=== PATIENT | female | born 1965 | race Two or more races ===

== ENCOUNTER 2020-11-23 14:59 | Inpatient (IN) | payer MEDICAID, OTHER ==
[~2020-11-23] VITALS: Ht 167.6 cm; Wt 145.1 kg
[2020-11-23 18:49] LABS: WHITE BLOOD COUNT (AUTO) 19.9 K/uL (4.3-11.0)
[2020-11-23 18:53] LABS: BASOPHILS # (AUTO) 0.1 /CMM (0.0-0.2); BASOPHILS % (AUTO) 0.4 % (0.0-2.0); EOSINOPHILS % (AUTO) 0.2 % (0.0-6.0); LYMPHOCYTES # (AUTO) 0.4 /CMM (0.8-4.8); MEAN CORPUSCULAR HGB CONC 30 g/dl (31.0-36.0); MEAN CORPUSCULAR VOLUME 91 fL (82-100); MONOCYTES % (AUTO) 4.9 % (2.0-12.0); NEUTROPHILS # (AUTO) 18.4 /CMM (1.8-8.9); NEUTROPHILS % (AUTO) 92.5 % (43.0-81.0); PLATELET COUNT (AUTO) 331 /CMM (150-450)
[2020-11-23 18:56] LABS: HEMATOCRIT 15 % (33-45); HEMOGLOBIN 4.4 g/dL (11.5-14.8)
[2020-11-23 19:09] LABS: CALCIUM, SERUM 9.8 mg/dL (8.5-10.1); POTASSIUM 4.8 mmol/L (3.5-5.1)
[2020-11-23 19:11] LABS: CREATININE 15.4 mg/dL (0.6-1.3)
--- NOTE | 2020-11-23 19:14 | NUR ---
[id number] FR HOME FOR WORSENING BLE PAIN AND SWELLING. PATIENT ASSISTED TO BED IN THE HALLWAY.
[2020-11-23] MEDS ORDERED: CLINDAMYCIN 900 MG in IV D5W 100 ML IV ONE (20:30)
[2020-11-23] MEDS ORDERED: CLINDAMYCIN 900 MG/6 ML VIAL ONE (20:38)
[2020-11-23] MEDS ORDERED: KETOROLAC TROMETHAMINE 15 MG/ML VIAL ONE ×2 (20:38→20:44)
[2020-11-23 20:42] LABS: LYMPHOCYTES % (MANUAL) 5 % (16-48); MONOCYTES % (MANUAL) 4 % (0-11.0); NEUTROPHILS % (MANUAL) 91 (42-76)
--- NOTE | 2020-11-23 20:50 | NUR ---
ASSUMED CARE FOR PATIENT AT THIS TIME. PT AAOX4. RESTING COMFORTABLY IN BED. VITAL SIGNS STABLE. NO ACUTE DISTRESS NOTED AT THIS TIME. WILL CONTINUE TO MONITOR
[2020-11-23] MEDS ORDERED: KETOROLAC TROMETHAMINE INJ 30 MG/ML VIAL IV ONE (21:00)
--- NOTE | 2020-11-23 21:47 | NUR ---
EPIC OYSTER PREPARER PAGED FOR PANEL
--- NOTE | 2020-11-23 22:20 | NUR ---
COVID SWAB COLLECTED AND SENT TO LAB
[2020-11-23] MEDS ORDERED: FUROSEMIDE 40 MG/4 ML VIAL IV ONE (23:30)
[2020-11-23] MEDS ORDERED: VANCOMYCIN 2 GM in IV D5W 500 ML IV ONE (23:30)
[2020-11-23] MEDS ORDERED: MAGNESIUM HYDROXIDE 30 ML UDC PO PRN (23:30)
[2020-11-23] MEDS ORDERED: ZOLPIDEM TARTRATE 5 MG TABLET PO PRN (23:30)
[2020-11-23] MEDS ORDERED: Z GUARD REMEDY 2 OZ OINT TP PRN (23:30)
[2020-11-23] MEDS ORDERED: MAG HYDROX/AL HYDROX/SIMETH 30 ML UDC PO PRN (23:30)
[2020-11-23] MEDS ORDERED: FUROSEMIDE 40 MG/4 ML VIAL ONE (23:32)
[2020-11-23] MEDS ORDERED: VANCOMYCIN 1 GM VIAL ONE (23:32)
--- NOTE | 2020-11-24 | NUR ---
PT RESTING COMFORTABLY IN BED. VITAL SIGNS STABLE. NO ACUTE DISTRESS NOTED AT THIS TIME. WILL CONTINUE TO MONITOR
[2020-11-24 00:15] LABS: BILIRUBIN,URINE Negative (NEGATIVE); COLOR,URINE YELLOW (YELLOW); LEUKOCYTE ESTERASE ,URINE Small (NEGATIVE); NITRITE, URINE Negative (NEGATIVE); PROTEIN,URINE >=300 mg/dl (NEGATIVE); UGLUCOSE Negative (NEGATIVE); UROBILINOGEN,URINE 0.2 EU/dL (0.2)
[2020-11-24 02:20] LABS: BACTERIA,URINE Moderate /HPF (None Seen); SQUAMOUS EPITHELIAL CELL,UR Moderate /HPF (None Seen)
--- NOTE | 2020-11-24 04:05 | NUR ---
CALLED LAB REGARDING BLOOD TRANSFUSION. PER LAB, NO ORDERS PLACED. BLANCA HAN NP MADE AWARE
--- NOTE | 2020-11-24 04:45 | NUR ---
BLOOD TRANSFUSION INITIATED
--- NOTE | 2020-11-24 05:00 | NUR ---
PT RESTING COMFORTABLY IN BED. VITAL SIGNS STABLE. NO ADVERSE REACTION NOTED AT THIS TIME. WILL CONTINUE TO MONITOR
--- NOTE | 2020-11-24 05:10 | NUR ---
APPLICATION PACKAGER UNABLE TO DRAW BLOOD AT THIS TIME D/T BLOOD TRANSFUSION RUNNING. BLANCA HAN NP MADE AWARE
--- NOTE | 2020-11-24 06:25 | NUR ---
1 UNIT PRBC COMPLETED AT THIS TIME. NO ADVERSE EFFECTS NOTED. PT RESTING COMFORTABLY IN BED. VITAL SIGNS STABLE. CALLED LAB FOR SECOND UNIT OF PRBC, NOT READY AT THIS TIME
--- NOTE | 2020-11-24 07:28 | NUR ---
REPORT GIVEN TO KENNY SORENSON FOR MIKE
[2020-11-24] MEDS ORDERED: LEVO150T8 PO (08:04)
[2020-11-24 09:09] LABS: BASOPHILS # (AUTO) 0.1 /CMM (0.0-0.2); MONOCYTES # (AUTO) 0.7 /CMM (0.1-1.30)
[2020-11-24 09:13] LABS: BASOPHILS % (AUTO) 0.4 % (0.0-2.0); EOSINOPHILS % (AUTO) 1.1 % (0.0-6.0); LYMPHOCYTES # (AUTO) 0.7 /CMM (0.8-4.8); LYMPHOCYTES % (AUTO) 3.7 % (20.0-44.0); MEAN CORPUSCULAR HGB CONC 30 g/dl (31.0-36.0); MEAN CORPUSCULAR VOLUME 94 fL (82-100); MONOCYTES % (AUTO) 3.8 % (2.0-12.0); NEUTROPHILS # (AUTO) 16.1 /CMM (1.8-8.9); PLATELET COUNT (AUTO) 276 /CMM (150-450); WHITE BLOOD COUNT (AUTO) 17.8 K/uL (4.3-11.0)
[2020-11-24 09:14] LABS: RED BLOOD CELL COUNT(AUTO) 1.64 MIL/uL (4.0-5.2)
[2020-11-24 09:18] LABS: HEMATOCRIT 15 % (33-45); HEMOGLOBIN 4.7 g/dL (11.5-14.8)
[2020-11-24 09:25] LABS: ALBUMIN 2.1 g/dL (3.4-5.0); BILIRUBIN,TOTAL 0.3 mg/dL (0.2-1.0); MAGNESIUM 2.9 mg/dL (1.8-2.4); POTASSIUM 4.6 mmol/L (3.5-5.1); TOTAL PROTEIN, SERUM 7.4 g/dL (6.4-8.2)
[2020-11-24 09:28] LABS: CREATININE 15.5 mg/dL (0.6-1.3); PHOSPHORUS 14.3 mg/dL (2.5-4.9)
--- NOTE | 2020-11-24 11:15 | NUR ---
report given to Deuce COX for liana
--- NOTE | 2020-11-24 11:41 | NUR ---
transferred patient via gurney accompanied by RN and emt in no distress. Blood infusing while on transfer.
--- NOTE | 2020-11-24 11:42 | NUR ---
RN at bedside to assume care.
[2020-11-24 12:25] LABS: LYMPHOCYTES % (MANUAL) 2 % (16-48); MONOCYTES % (MANUAL) 6 % (0-11.0); NEUTROPHILS % (MANUAL) 92 (42-76)
--- NOTE | 2020-11-24 12:25 | NUR ---
BUSINESS DEVELOPMENT INTERN ADMITTING NOTES PATIENT ADMITTED TO UNIT VIA [facility] @ 2000 ACCOMPANIED BY Rosario SORENSON. A/O X4. ABLE TO MAKE NEEDS KNOWN, DENIES PAIN OR ANY DISCOMFORTS AT THIS TIME. PT ORIENTED TO STAFF AND ROOM. ON ROOM AIR, BREATHING EVEN AND UNLABORED NO SIGNS OF ACUTE DISTRESS NOTED. PT WITH IV ACCESS NOTED ON RIGHT HAND g#18 WITH BLOOD TRANSFUSION ( BAG 2-3) INFUSING WELL, NO COMPLAINTS OF ANY ALLERGIC/ADVERSE REACTIONS VOICED. PT PLACED ON EXTERNAL MONITORING WITH CURRENT READING OF NSR WITH HR ON THE 70'S, NO C/O CARDIAC DISTRESS VOICED. PHOTOS OF SKIN ISSUES TAKEN BUT PT REFUSED TO HAVE ASSESSMENT ON HER BACK OR SACRAL AREA, SAME REFUSED TO REMOVE DRESSINGS AND TAKE PHOTOS ON HER LEFT LOWER EXTREMITIES STATED THAT SHE GOES TO [facility] FOR WOUND DRESSING ONCE A WEEK. WADE FR #[address] ACTIVELY DRAINING CLEAR YELLOW URINE TO BEDSIDE URINARY BAG. SAFETY MEASURES INITIATED: BED PLACED IN LOWEST LOCKED POSITION WITH SR UP X2. CALL LIGHT PLACED W/I EASY REACH OF PT. WILL CONTINUE TO MONITOR PT ACCORDINGLY.
[2020-11-24] MEDS: HYDROCODONE/APAP 5/325MG TABLET PO PRN (13:06)
--- NOTE | 2020-11-24 13:06 | NUR ---
RN NOTES PT'S 2ND OF 3RD BAG OF PRBC COMPLETED AT THIS TIME. NO ALLERGIC/ADVERSE EFFECTS NOTED. PT RESTING COMFORTABLY IN BED IN NO ACUTE SIGNS OF DISTRESS. VITAL SIGNS STABLE. WILL INFUSE 3RD BAG ORDERED.
--- NOTE | 2020-11-24 13:10 | NUR ---
RN NOTES PT COMPLAINING OF PINCHING/ SHARP PAIN ON RIGHT LOWER LEG. 7/10 SCALE. PRN NORCO 5/325 MG P.O. GIVEN ORDERED AT 1306. WILL CONTINUE TO MONITOR AND REASSESS PT.
--- NOTE | 2020-11-24 15:00 | NUR ---
RN NOTES WENT TO LAB TO COLLECT THE PT'S 3RD BAG OF PRBC BUT UNABLE TO SCAN PRBC PRODUCT NUMBER. RETURNED PRBC TO LAB. BLOOD BANK WILL CALL ONCE THE [facility] IS READY. WILL FOLLOW UP
[2020-11-24 16:00] VITALS: BP 99/49
--- NOTE | 2020-11-24 17:35 | NUR ---
RN NOTES CALLED BLOOD BANK TO FOLLOW UP ON PT'S 3RD PRBC. WAS TOLD THAT PRBC IS NOT READY YET. WILL FOLLOW UP.
[2020-11-24 18:32] VITALS: BP 119/60
--- NOTE | 2020-11-24 18:37 | NUR ---
RN NOTES 3RD BAG OF 3 PRBC STARTED VIA R HAND IV ACCESS. VITAL SIGNS CHECKED: BP 119/60, P 75, RR 20, AND TEMPERATURE 97.6 F. WILL MONITOR FOR ANY ALLERGIC OR ADVERSE REACTIONS.
[2020-11-24 18:52] VITALS: BP 122/58
--- NOTE | 2020-11-24 18:56 | NUR ---
GRILL PREP COOK CLOSING NOTES PT IN BED AWAKE AT THIS TIME AND RESTING AT MODERATE HIGH BACKREST POSITION. A/O X4. ABLE TO MAKE NEEDS KNOWN. TOLERATING ROOM AIR WITH NO ACUTE RESPIRATORY DISTRESS NOTED DURING SHIFT. IV ACCESS ON RIGHT HAND g#18 INTACT AND PATENT, BLOOD TRANSFUSION BAG 3 OF 3 ONGOING WELL, NO COMPLAINTS OF ANY ALLERGIC/ADVERSE REACTIONS NOTED. EXTERNAL MONITORING SHOWS CURRENT READING OF NSR WITH HR ON THE 70'S, NO C/O CARDIAC DISTRESS VOICED. WADE CATHETER FR #[address] AND ACTIVELY DRAINING CLEAR FRANCIS URINE TO BEDSIDE URINARY BAG, WADE CARE DONE. PT ASSISTED IN REPOSITIONING IN BED PRN. KEPT CLEAN, DRY AND COMFORTABLE. SAFETY MEASURES MAINTAINED: BED KEPT IN LOWEST LOCKED POSITION WITH SR UP X2. CALL LIGHT W/I EASY REACH OF PT. WILL ENDORSE MIKE TO FUNERAL DIRECTOR NURSE.
[2020-11-24 19:52] VITALS: BP 116/67
--- NOTE | 2020-11-24 20:24 | NUR ---
MS/TELE/RN DURING INITIAL SHIFT ROUNDING, PATIENT WAS IN BED AWAKE, ALERT, ORIENTED, COMFORTABLE, NO C/O PAIN, NO DISTRESS NOTED, BLOOD TRANSFUSION IN PROGRESS, CALL LIGHT IN REACH, FALL PRECAUTIONS PER PROTOCOL IMPLEMENTED, WILL MONITOR.
[2020-11-24 21:25] VITALS: BP 116/67
[2020-11-24 22:00] VITALS: BP 135/69
--- NOTE | 2020-11-24 22:37 | NUR ---
MS/TELE/RN BLOOD TRANSFUSION WAS FINISHED AT 2200, VITAL SIGNS STABLE, AFEBRILE, NO S/S OF BLOOD TRANSFUSION REACTION. WILL MONITOR,
[2020-11-25] VITALS (7 sets, daily range): BP systolic 95–135; BP diastolic 59–66
--- NOTE | 2020-11-25 02:19 | NUR ---
MS/TELE/RN PATIENT IS SLEEPING AT THIS TIME, APPEAR COMFORTABLE, NO DISTRESS NOTED, CALL LIGHT IN REACH, WILL CONTINUE TO MONITOR.
--- NOTE | 2020-11-25 06:04 | NUR ---
MS/TELE/RN PATIENT IS AWAKE, ALERT, ORIENTED, COMFORTABLE, NO DISTRESS NOTED, GOOD SLEEP NOTED THE WHOLE SHIFT, ALL NEEDS ATTENDED AT THIS TIME, WILL CONTINUE TO MONITOR.
[2020-11-25 06:09] LABS: BASOPHILS % (AUTO) 0.2 % (0.0-2.0); EOSINOPHILS % (AUTO) 1.9 % (0.0-6.0); LYMPHOCYTES # (AUTO) 0.4 /CMM (0.8-4.8); LYMPHOCYTES % (AUTO) 2.1 % (20.0-44.0); MEAN CORPUSCULAR HGB CONC 33 g/dl (31.0-36.0); MEAN CORPUSCULAR VOLUME 91 fL (82-100); MONOCYTES # (AUTO) 0.6 /CMM (0.1-1.30); MONOCYTES % (AUTO) 3.6 % (2.0-12.0); NEUTROPHILS # (AUTO) 15.9 /CMM (1.8-8.9); NEUTROPHILS % (AUTO) 92.2 % (43.0-81.0); PLATELET COUNT (AUTO) 251 /CMM (150-450); WHITE BLOOD COUNT (AUTO) 17.2 K/uL (4.3-11.0)
[2020-11-25 06:15] LABS: HEMATOCRIT 17 % (33-45); HEMOGLOBIN 5.5 g/dL (11.5-14.8); RED BLOOD CELL COUNT(AUTO) 1.84 MIL/uL (4.0-5.2)
[2020-11-25 06:27] LABS: BILIRUBIN,TOTAL 0.3 mg/dL (0.2-1.0); CALCIUM, SERUM 8.6 mg/dL (8.5-10.1); MAGNESIUM 2.8 mg/dL (1.8-2.4); POTASSIUM 4.6 mmol/L (3.5-5.1); TOTAL PROTEIN, SERUM 6.8 g/dL (6.4-8.2)
[2020-11-25 07:10] LABS: CREATININE 15.1 mg/dL (0.6-1.3)
[2020-11-25 07:13] LABS: PHOSPHORUS 12.7 mg/dL (2.5-4.9)
--- NOTE | 2020-11-25 07:40 | NUR ---
SCHEDULE CLERK OPENING NOTES PT IN BED AWAKE AT THIS TIME AND RESTING AT SEMI-FOWLERS POSITION. A/O X4, ABLE TO MAKE NEEDS KNOWN. TOLERATING ROOM AIR WITH NO ACUTE RESPIRATORY DISTRESS NOTED DURING SHIFT. IV ACCESS ON RIGHT HAND g#18 INTACT AND PATENT. EXTERNAL MONITORING SHOWS CURRENT READING OF NSR WITH HR ON THE 80'S, NO C/O CARDIAC DISTRESS VOICED. WADE CATHETER FR #[address] AND ACTIVELY DRAINING CLEAR YELLOW URINE TO BEDSIDE URINARY BAG. PATIENT KEPT CLEAN, DRY AND COMFORTABLE. SAFETY MEASURES MAINTAINED: BED KEPT IN LOWEST LOCKED POSITION WITH SR UP X2. CALL LIGHT W/I EASY REACH OF PT. WILL CONTINUE TO MONITOR.
[2020-11-25] MEDS: HYDROCODONE/APAP 5/325MG TABLET PO PRN (08:30)
--- NOTE | 2020-11-25 08:40 | NUR ---
RN NOTES URINE SPECIMEN COLLECTED. CALL LAB TO PICK-UP SPECIMEN.
--- NOTE | 2020-11-25 08:48 | NUR ---
RN NOTES PT COMPLAINING OF PINCHING/ SHARP PAIN ON RIGHT LOWER LEG. 7/10 SCALE. PRN NORCO 5/325 MG P.O. GIVEN ORDERED AT 0830. WILL CONTINUE TO MONITOR AND REASSESS PT.
--- NOTE | 2020-11-25 09:40 | NUR ---
RN NOTES PT SEEN AND EVALUATED BY WOUND RN JAIR, ORDERS MADE. WILL CARRY OUT ORDERS.
--- NOTE | 2020-11-25 09:40 | NUR ---
WOUND CARE CONSULT: PT PRESENTS WITH RT LOWER LEG REDNESS WITH SOME CRUSTING OF SKIN AND TENDERNESS,AND LEFT LOWER LEG SCARRING, PRESENT ON ADMISSION. LEFT LOWER LEG HAD MULTILAYER COMPRESSION WRAP WHICH WAS REMOVED. RECOMMEND DPM CONSULT. DR CHAIDEZ NOTIFIED OF CONSULT REQUEST. RECOMMENDATIONS MADE FOR SKIN PROTECTION. MD IN AGREEMENT WITH PLAN OF CARE.
[2020-11-25 09:54] LABS: BILIRUBIN,URINE NEGATIVE (NEGATIVE); LEUKOCYTE ESTERASE ,URINE SMALL (NEGATIVE); NITRITE, URINE POSITIVE (NEGATIVE); PH,URINE 5.5 (5.0-8.0); PROTEIN,URINE 100 mg/dl (NEGATIVE); UGLUCOSE NEGATIVE (NEGATIVE); UROBILINOGEN,URINE 0.2 EU/dL (0.2)
[2020-11-25 09:58] LABS: COLOR,URINE STRAW (YELLOW)
[2020-11-25 10:24] LABS: CREATININE, URINE 45.3 MG/DL (30.0-125.0); URINE TOTAL PROTEIN 114.8 mg/dL (0-11.9)
[2020-11-25] MEDS ORDERED: LIDOCAINE/PRILOCAINE (5GM) 5 GM TUBE TP PRN (11:30)
--- NOTE | 2020-11-25 11:34 | NUR ---
RN NOTES DR. GALLARDO MADE AWARE OF PATIENT'S LOW HGB OF 5.5 TODAY WITH ORDER TO INFUSE 1 UNIT OF PRBC. WILL CARRY OUT ORDER.
[2020-11-25 12:34] LABS: BACTERIA,URINE Moderate /HPF (None Seen); SQUAMOUS EPITHELIAL CELL,UR Few /HPF (None Seen)
[2020-11-25 12:42] LABS: EOSINOPHILS % (MANUAL) 1 % (0-4); LYMPHOCYTES % (MANUAL) 4 % (16-48); MONOCYTES % (MANUAL) 3 % (0-11.0); NEUTROPHILS % (MANUAL) 92 (42-76)
[2020-11-25 14:10] LABS: EOSINOPHIL,URINE None Seen
--- NOTE | 2020-11-25 14:15 | NUR ---
RN NOTES PT WITH HGB OF 5.5 TODAY. INITIATED BLOOD TRANSFUSION OF PRBC X1 UNIT VIA R HAND IV ACCESS. VITAL SIGNS CHECKED: BP 110/62, P 80, RR 18, AND TEMPERATURE 97.8 F. WILL MONITOR FOR ANY ALLERGIC OR ADVERSE REACTIONS.
--- NOTE | 2020-11-25 14:30 | NUR ---
RN NOTES AFTER 15 MINUTES OF STARTED BLOOD TRANSFUSION OF PRBC, NO A/R OR ALLERGIC REACTIONS NOTED. WILL CONTINUE TO MONITOR.
[2020-11-25] MEDS: CLOTRIMAZOLE 1% 15 GM TUBE TP SCH (16:29)
[2020-11-25] MEDS: CALAMINE 118 ML BOTTLE TP PRN (16:30)
[2020-11-25] MEDS: MINERAL OIL/PETROLATUM,WHITE 120 GM JAR TP PRN (16:31)
--- NOTE | 2020-11-25 17:23 | NUR ---
RN NOTES BLOOD TRANSFUSION OF PRBC X1 FINISHED, PT TOLERATED WITH NO ALLERGIC/ADVERSE REACTIONS NOTED. S/P HD V/S TAKEN, WNL AND RECORDED. WILL CONTINUE TO MONITOR.
--- NOTE | 2020-11-25 18:26 | NUR ---
COMPUTER FORENSICS INVESTIGATOR CLOSING NOTES PT IN BED AWAKE AT THIS TIME AND RESTING AT SEMI-FOWLERS POSITION. A/O X4, ABLE TO MAKE NEEDS KNOWN. ON O2 2LPM VIA NC; TOLERATING WELL. WITH NO ACUTE RESPIRATORY DISTRESS NOTED DURING SHIFT. PATIENT VERBALIZES "FEELS ANXIOUS" AND EDUCATED COPING MECHANISMS AND DEEP BREATHING TECHNIQUES. IV ACCESS ON RIGHT HAND g#18 INTACT AND PATENT. EXTERNAL MONITORING SHOWS CURRENT READING OF NSR WITH HR ON THE 80'S, NO C/O CARDIAC DISTRESS VOICED. WADE CATHETER FR #[address] AND ACTIVELY DRAINING CLEAR YELLOW URINE TO BEDSIDE URINARY BAG. PATIENT KEPT CLEAN, DRY AND COMFORTABLE. SAFETY MEASURES MAINTAINED: BED KEPT IN LOWEST LOCKED POSITION WITH SR UP X2. CALL LIGHT W/I EASY REACH OF PT. WILL ENDORSE MIKE TO ONCOMING NURSE.
--- NOTE | 2020-11-25 19:56 | NUR ---
MS/TELE/RN RECEIVED PATIENT ON BED AWAKE, ALERT, ORIENTED, COMFORTABLE, NO C/O PAIN, NO DISTRESS NOTED, CALL LIGHT IN REACH, WILL MONITOR.
[2020-11-26] MEDS: ACETAMINOPHEN 325 MG TABLET PO PRN ×2 (00:19→23:41)
--- NOTE | 2020-11-26 00:22 | NUR ---
MS/TELE/RN C/O PAIN IN THE TONGUE, REQUESTED FOR TYLENOL, TYLENOL 650 MG PO WAS GIVEN ORDERED, WILL MONITOR.
[2020-11-26 01:47] VITALS: BP 131/63
[2020-11-26 04:57] VITALS: BP 142/67
--- NOTE | 2020-11-26 06:10 | NUR ---
MS/TELE/RN PATIENT IS AWAKE, ALERT AND ORIENTED, COMFORTABLE, NO C/O PAIN NO DISTRESS NOTED, VERBALIZED THAT SHE SLEPT GOOD, PUDDING WAS GIVEN PER HER REQUEST, ALL NEEDS ATTENDED AT THIS TIME, WILL CONTINUE TO MONITOR.
[2020-11-26 06:32] LABS: BASOPHILS % (AUTO) 0.2 % (0.0-2.0); EOSINOPHILS % (AUTO) 1.2 % (0.0-6.0); HEMATOCRIT 21 % (33-45); LYMPHOCYTES # (AUTO) 0.5 /CMM (0.8-4.8); MEAN CORPUSCULAR HGB CONC 31 g/dl (31.0-36.0); MEAN CORPUSCULAR VOLUME 92 fL (82-100); MONOCYTES # (AUTO) 0.5 /CMM (0.1-1.30); NEUTROPHILS # (AUTO) 16.4 /CMM (1.8-8.9); NEUTROPHILS % (AUTO) 92.6 % (43.0-81.0); PLATELET COUNT (AUTO) 262 /CMM (150-450); RED BLOOD CELL COUNT(AUTO) 2.27 MIL/uL (4.0-5.2); WHITE BLOOD COUNT (AUTO) 17.7 K/uL (4.3-11.0)
[2020-11-26 06:58] LABS: HEMOGLOBIN 6.6 g/dL (11.5-14.8)
--- NOTE | 2020-11-26 07:00 | NUR ---
RN OPENING NOTES RECEIVED PT AWAKE AT THIS TIME.AOX4. NO SOB NOTED, NO S/S OF ANY APPARENT DISTRESS NOTED. NO SIGN OF PAIN NOTED AT THIS TIME. PT ON EXTERNAL SILK FINISHER READING SR 82. RESPIRATIONS ARE EVEN AND UNLABORED. PT NOTED ON OXYGEN 2LPM VIA NC. IV ACCESS NOTED IN RIGHT HAND G# 18, INTACT, PATENT AND FLUSHING WELL. WADE CATHETER IN PLACE AND DRAINING TO GRAVITY CLEAR YELLOW URINE OUTPUT. ASPIRATION AND SAFETY PRECAUTION IN PLACE AND MAINTAINED AT ALL TIMES. BED IN LOWEST LOCKED POSITION, HOB ELEVATED, SIDE RAILS UP X 2, CALL LIGHT AND TABLE WITHIN REACH. WILL CONTINUE TO MONITOR
[2020-11-26 07:17] LABS: MAGNESIUM 3.8 mg/dL (1.8-2.4); POTASSIUM 4.7 mmol/L (3.5-5.1)
[2020-11-26 07:17] LABS: PTH, INTACT 1854 pg/mL (15-65)
[2020-11-26 08:00] VITALS: BP 137/71
--- NOTE | 2020-11-26 08:10 | NUR ---
RECEIVED REPORT FROM SAMAN SALAD MAKER ABOUT PT'S PHOSPHORUS 13.0, REPORT READ BACK. DR GALLARDO MADE AWARE. NO NEW ORDERS AT THIS TIME. WILL CONTINUE TO MONITOR
[2020-11-26] MEDS: CLOTRIMAZOLE 1% 15 GM TUBE TP SCH ×2 (08:51→16:30)
[2020-11-26] MEDS: DAKINS QUARTER STRENGTH (0.125%) 480 ML BOTTLE TOP SCH (08:53)
[2020-11-26] MEDS: HYDROCODONE/APAP 5/325MG TABLET PO PRN ×2 (09:00→18:23)
--- NOTE | 2020-11-26 09:00 | NUR ---
DR GALLARDO MADE AWARE OF PT'S HEMOGLOBIN OF 6.6. NO NEW ORDERS AT THIS TIME. WILL CONTINUE TO MONITOR Addendum: 11/26/20 at 1137 by LUMA BROCK RN DR GALLARDO MADE AWARE OF PT'S HEMOGLOBIN OF 6.6. NO NEW ORDERS AT THIS TIME. DENYS BASS NURSE AWARE. WILL CONTINUE TO MONITOR
--- NOTE | 2020-11-26 09:03 | NUR ---
PT C/O OF ACHING CALF PAIN OF 7/10. PT NOTED WITH FACIAL GRIMACE AND MOANING. VS WNL. PER PT REQUEST NORCO 5-325MG PO Q4HR PRN ADMINISTERED AT THIS TIME PER ORDER. WILL CONTINUE TO MONITOR
[2020-11-26 09:04] LABS: COMPLEMENT C3, SERUM 117 mg/dL (82-167); COMPLEMENT C4, SERUM 16 mg/dL (12-38)
[2020-11-26 11:14] VITALS: BP 123/63
[2020-11-26 11:18] LABS: NEUTROPHILS % (MANUAL) 92 (42-76)
[2020-11-26 11:19] LABS: EOSINOPHILS % (MANUAL) 1 % (0-4); LYMPHOCYTES % (MANUAL) 5 % (16-48); MONOCYTES % (MANUAL) 2 % (0-11.0)
--- NOTE | 2020-11-26 11:28 | NUR ---
RECEIVED ORDER FROM DR GALLARDO TO CONTINUE PT'S HOME MEDICATION. LEVOTHYROXINE SODIUM 125MCG PO ACB. ORDERS READ BACK AND CARRIED OUT. WILL CONTINUE TO MONITOR
[2020-11-26] MEDS ORDERED: VANCOMYCIN 1.25 GM in IV D5W 250 ML IV SCH (15:00)
[2020-11-26 15:26] LABS: *SPE A/G RATIO 0.6 (0.7-1.7); *SPE ALBUMIN 2.2 g/dL (2.9-4.4); *SPE ALPHA-1-GLOBULIN 0.5 g/dL (0.0-0.4); *SPE GLOBULIN, TOTAL 3.9 g/dL (2.2-3.9); *SPE M-SPIKE Not Observed g/dL (Not Observed); *SPEGAMMA GLOBULIN 1.4 g/dL (0.4-1.8)
--- NOTE | 2020-11-26 15:49 | NUR ---
CONSENT FOR ACUTE HEMODIALYSIS, SIGNED BY PATIENT AND FILED IN CHART. WILL CONTINUE TO MONITOR
[2020-11-26 16:00] VITALS: BP 123/59
--- NOTE | 2020-11-26 18:00 | NUR ---
PT's IV SITE INFILTRATED. IV DISCONTINUED, REMOVED, PRESSURE APPLIED, SECURED WITH GAUZE AND TAPE. NO S/O BLEEDING NOTED, HAND ELEVATED ON A PILLOW, HOT COMPRESS APPLIED. RECEIVED ORDERS FROM DR YOUNG FOR MIDLINE INSERTION. WILL CONTINUE TO MONITOR
--- NOTE | 2020-11-26 18:24 | NUR ---
PT C/O OF ACHING RIGHT HAND PAIN OF 7/10. PT NOTED WITH FACIAL GRIMACE AND MOANING. VS WNL. PER PT REQUEST NORCO 5-325MG PO Q4HR PRN ADMINISTERED AT THIS TIME PER ORDER. WILL CONTINUE TO MONITOR
--- NOTE | 2020-11-26 19:48 | NUR ---
RN CLOSING NOTES PT AWAKE IN BED AT THIS TIME. PT REMAINED STABLE THROUGHOUT SHIFT. ALL CARE, NEED, MEDICATIONS AND TREATMENT ADMINISTERED ANTICIPATED PER ORDER. PT KEPT CLEAN AND DRY. PT REPOSITIONED Q2HR AND PRN. ASPIRATION AND SAFETY PRECAUTION IN PLACE AND MAINTAINED AT ALL TIMES. BED IN LOWEST LOCKED POSITION, HOB ELEVATED, SIDE RAILS UP X 2, CALL LIGHT AND TABLE WITHIN REACH. WILL ENDORSE TO WEB APPLICATIONS DEVELOPER NURSE FOR MIKE
[2020-11-26 20:00] VITALS: BP 118/74
--- NOTE | 2020-11-26 23:45 | NUR ---
RN NOTES complained of headache-tylenol 650mg po given as ordered
[2020-11-27] VITALS (10 sets, daily range): BP systolic 108–140; BP diastolic 61–72
[2020-11-27 05:22] LABS: *ANA ANTI-CENTROMERE B AB <0.2 AI (0.0-0.9); *ANA ANTI-DNA(DS) AB, QN <1 IU/mL (0-9); *ANA ANTI-JO-1 <0.2 AI (0.0-0.9); *ANA ANTICHROMATIN ANTIBODY <0.2 AI (0.0-0.9); *ANA RNP ANTIBODIES 0.2 AI (0.0-0.9); *ANA SJOGREN'S ANTI-SS-A <0.2 AI (0.0-0.9); *ANA SJOGREN'S ANTI-SS-B 0.7 AI (0.0-0.9); *ANAANTI-SCLERODERMA-70 AB <0.2 AI (0.0-0.9); *ANASMITH AB <0.2 AI (0.0-0.9)
[2020-11-27 05:54] LABS: BASOPHILS % (AUTO) 0.2 % (0.0-2.0); EOSINOPHILS % (AUTO) 0.9 % (0.0-6.0); LYMPHOCYTES # (AUTO) 0.3 /CMM (0.8-4.8); LYMPHOCYTES % (AUTO) 1.6 % (20.0-44.0); MEAN CORPUSCULAR HGB CONC 33 g/dl (31.0-36.0); MEAN CORPUSCULAR VOLUME 89 fL (82-100); MONOCYTES # (AUTO) 0.7 /CMM (0.1-1.30); MONOCYTES % (AUTO) 4.3 % (2.0-12.0); NEUTROPHILS # (AUTO) 16.3 /CMM (1.8-8.9); PLATELET COUNT (AUTO) 244 /CMM (150-450); RED BLOOD CELL COUNT(AUTO) 2.03 MIL/uL (4.0-5.2); WHITE BLOOD COUNT (AUTO) 17.5 K/uL (4.3-11.0)
[2020-11-27 06:00] LABS: HEMATOCRIT 18 % (33-45)
[2020-11-27 06:13] LABS: EOSINOPHILS % (MANUAL) 1 % (0-4); LYMPHOCYTES % (MANUAL) 2 % (16-48); MONOCYTES % (MANUAL) 2 % (0-11.0); NEUTROPHILS % (MANUAL) 95 (42-76)
[2020-11-27 06:15] LABS: CALCIUM, SERUM 8.6 mg/dL (8.5-10.1); MAGNESIUM 2.6 mg/dL (1.8-2.4); POTASSIUM 4.4 mmol/L (3.5-5.1)
[2020-11-27] MEDS: ACETAMINOPHEN 325 MG TABLET PO PRN (06:27)
[2020-11-27 08:00] LABS: CREATININE 11.8 mg/dL (0.6-1.3)
[2020-11-27 08:01] LABS: PHOSPHORUS 10.4 mg/dL (2.5-4.9)
[2020-11-27] MEDS: DAKINS QUARTER STRENGTH (0.125%) 480 ML BOTTLE TOP SCH (08:18)
[2020-11-27] MEDS: LEVOTHYROXINE SODIUM 75 MCG TABLET PO SCH (08:18)
[2020-11-27] MEDS: CLOTRIMAZOLE 1% 15 GM TUBE TP SCH ×2 (08:18→17:30)
[2020-11-27] MEDS: HYDROCODONE/APAP 5/325MG TABLET PO PRN ×2 (12:15→17:29)
--- NOTE | 2020-11-27 16:37 | NUR ---
RN NOTES S/P 1 UNIT OF PRBC. PT REMAINS STABLE. A/O X4. NO S/S OF TRANSFUSION REACTION.
[2020-11-27 17:50] LABS: HEMOGLOBIN 6.5 g/dL (11.5-14.8)
--- NOTE | 2020-11-27 18:40 | NUR ---
RN CLOSING NOTE Patient is resting in bed, A/ox4, showing no signs of acute distress or SOB, saturating 96% on 3L NC. Tele monitor Sr 70s-80s. S/P 1 unit PRBC. S/P HD 2L out today. Mckenzie catheter 500 cc clear yellow output. No BM today. SANTI midline is clean and intact flushing well. Right femoral HD cath noted. RLE elephantiasis noted, wound care as ordered by Dpm. All patient needs met, all due medications given, patient kept clean and dry throughout shift. Bed is in lowest position, side rails x2 in upright position, call light is within reach, fall safety and aspiration precautions enforced. Will endorse to maintenance worker house trailer for MIKE.
--- NOTE | 2020-11-27 19:30 | NUR ---
HEAT TREATING OPERATOR NOTE: PATIENT RESTING IN BED, NO ACUTE DISTRESS NOTED. BREATHING EVEN AND UNLABORED, NO SOB NOTED. MIDLINE TO SANTI IN PLACE. RIGHT FEMORAL HD SITE IN PLACE, NO BLEEDING NOTED. WADE CATHETER IN PLACE, EMPTY AT THIS TIME. BED LOCKED AND IN LOWEST POSITION, CALL LIGHT IN REACH. WILL CONTINUE TO MONITOR.
[2020-11-27] MEDS: CEFTRIAXONE 1 G in IV D5W 50 ML IV SCH (20:56)
[2020-11-27] MEDS: ONDANSETRON HCL/PF 4 MG/2 ML VIAL IVP PRN (21:51)
[2020-11-28] VITALS (7 sets, daily range): BP systolic 97–147; BP diastolic 38–76
[2020-11-28] MEDS: HYDROCODONE/APAP 5/325MG TABLET PO PRN ×2 (03:52→08:57)
--- NOTE | 2020-11-28 04:00 | NUR ---
WIRE SAW OPERATOR NOTE: PATIENT COMPLAINS OF PAIN TO RLE 06/06, NORCO 5/325MG 1 TAB ORAL GIVEN PER MD ORDER. WILL CONTINUE TO MONITOR.
--- NOTE | 2020-11-28 06:10 | NUR ---
CHIEF CONCIERGE NOTE: PATIENT RESTING IN BED, NO ACUTE DISTRESS NOTED. BREATHING EVEN AND UNLABORED, NO SOB NOTED. MIDLINE TO SANTI IN PLACE. RIGHT FEMORAL HD SITE IN PLACE, NO BLEEDING NOTED. WADE CATHETER IN PLACE. BED LOCKED AND IN LOWEST POSITION, CALL LIGHT IN REACH. WILL ENDORSE TO DAY NURSE TO CONTINUE WITH PLAN OF CARE.
[2020-11-28 06:16] LABS: BASOPHILS % (AUTO) 0.2 % (0.0-2.0); CALCIUM, SERUM 8.7 mg/dL (8.5-10.1); EOSINOPHILS % (AUTO) 1.6 % (0.0-6.0); LYMPHOCYTES # (AUTO) 0.5 /CMM (0.8-4.8); LYMPHOCYTES % (AUTO) 2.6 % (20.0-44.0); MEAN CORPUSCULAR HGB CONC 33 g/dl (31.0-36.0); MEAN CORPUSCULAR VOLUME 88 fL (82-100); MONOCYTES # (AUTO) 1.1 /CMM (0.1-1.30); MONOCYTES % (AUTO) 5.8 % (2.0-12.0); NEUTROPHILS # (AUTO) 16.3 /CMM (1.8-8.9); NEUTROPHILS % (AUTO) 89.8 % (43.0-81.0); PLATELET COUNT (AUTO) 240 /CMM (150-450); POTASSIUM 4.2 mmol/L (3.5-5.1); RED BLOOD CELL COUNT(AUTO) 2.19 MIL/uL (4.0-5.2); WHITE BLOOD COUNT (AUTO) 18.1 K/uL (4.3-11.0)
[2020-11-28 06:17] LABS: CREATININE 9.7 mg/dL (0.6-1.3)
[2020-11-28 06:52] LABS: HEMATOCRIT 19 % (33-45); HEMOGLOBIN 6.3 g/dL (11.5-14.8)
[2020-11-28 07:57] LABS: EOSINOPHILS % (MANUAL) 1 % (0-4); LYMPHOCYTES % (MANUAL) 9 % (16-48); MONOCYTES % (MANUAL) 3 % (0-11.0); NEUTROPHILS % (MANUAL) 87 (42-76)
--- NOTE | 2020-11-28 08:00 | NUR ---
PRECISION MARKET INSIGHTS OPENING NOTES PT AWAKE IN BED AT THIS TIME. C/O ORAL THRUSH -WILL NOTIFY . HGB 6.3. DR PAULINA MERCADO MADE AWARE WITH NO NEW ORDER STATING TO NOTIFY DR KRISHNA FOR LOW HGB/HCT RESULT. ON 02 AT 2L/MIN VIA NC. O2 SAT 96%. WITH WADE CATHETER INTACT DRAINING CLEAR YELLOW URINE OUTPUT.PT KEPT CLEAN AND DRY. PT REPOSITIONED Q2HR AND PRN. ASPIRATION AND SAFETY PRECAUTION IN PLACE AND MAINTAINED AT ALL TIMES. BED IN LOWEST LOCKED POSITION, HOB ELEVATED, SIDE RAILS UP X 2, CALL LIGHT AND TABLE WITHIN REACH.
[2020-11-28] MEDS: LEVOTHYROXINE SODIUM 75 MCG TABLET PO SCH (08:57)
[2020-11-28] MEDS: CLOTRIMAZOLE 1% 15 GM TUBE TP SCH ×2 (09:13→17:29)
[2020-11-28] MEDS: DAKINS QUARTER STRENGTH (0.125%) 480 ML BOTTLE TOP SCH (09:13)
--- NOTE | 2020-11-28 14:57 | NUR ---
NOTIFIED DR KRISHNA OF PT'S LOW HGB/HCT OF 6.3/ WITH ORDERS TO TRANSFUSE 1 UNIT PRBC
--- NOTE | 2020-11-28 16:43 | NUR ---
HEMODIALYSIS COMPLETED WITH 1.5 LITERS OUTPUT. BP 147/75 HR 76 RR 16 T 98.1
[2020-11-28] MEDS: CHLORHEXIDINE GLUCONATE 15 ML UDC MM SCH (17:28)
--- NOTE | 2020-11-28 18:28 | NUR ---
ONGOING TRANSFUSION OF 1 UNIT PRBC WITH NO ADVERSE REACTIONS. WILL CONTINUE TO MONITOR.
[2020-11-28] MEDS: CEFTRIAXONE 1 G in IV D5W 50 ML IV SCH (21:36)
[2020-11-29] VITALS: BP 136/64
[2020-11-29 04:00] VITALS: BP 122/58
[2020-11-29 07:00] LABS: BASOPHILS # (AUTO) 0.1 /CMM (0.0-0.2); BASOPHILS % (AUTO) 0.3 % (0.0-2.0); EOSINOPHILS % (AUTO) 2.2 % (0.0-6.0); LYMPHOCYTES # (AUTO) 0.4 /CMM (0.8-4.8); LYMPHOCYTES % (AUTO) 2.5 % (20.0-44.0); MEAN CORPUSCULAR HGB CONC 33 g/dl (31.0-36.0); MEAN CORPUSCULAR VOLUME 89 fL (82-100); MONOCYTES # (AUTO) 1.1 /CMM (0.1-1.30); MONOCYTES % (AUTO) 6.9 % (2.0-12.0); NEUTROPHILS # (AUTO) 14.1 /CMM (1.8-8.9); NEUTROPHILS % (AUTO) 88.1 % (43.0-81.0); PLATELET COUNT (AUTO) 221 /CMM (150-450); RED BLOOD CELL COUNT(AUTO) 2.29 MIL/uL (4.0-5.2); WHITE BLOOD COUNT (AUTO) 16.1 K/uL (4.3-11.0)
[2020-11-29 07:31] LABS: HEMATOCRIT 20 % (33-45); HEMOGLOBIN 6.7 g/dL (11.5-14.8)
[2020-11-29 07:33] LABS: CALCIUM, SERUM 8.6 mg/dL (8.5-10.1); CREATININE 7.4 mg/dL (0.6-1.3); POTASSIUM 4.1 mmol/L (3.5-5.1)
--- NOTE | 2020-11-29 07:33 | NUR ---
PIG LEAD MELTER HELPER OPENING NOTES RECEIVED PT IN BED AWAKE, A/O X4. ABLE TO MAKE NEEDS KNOWN, DENIES PAIN OR ANY DISCOMFORTS AT THIS TIME. ON 02 VIA N/C AT 2LPM, TOLERATING WELL WITH NO ACUTE RESPIRATORY DISTRESS NOTED. SANTI MIDLINE IN PLACE AND FLUSHES WELL. EXTERNAL MONITOR SHOWS CURRENT READING OF NSR WITH HR ON THE 80'S, NO C/O CARDIAC DISTRESS VOICED. RIGHT FEMORAL HD CATH IN PLACE WITH DRESSING C/D/I. WADE CATHETER IN PLACE AND ACTIVELY DRAINING CLEAR YELLOW URINE TO BEDSIDE URINARY BAG. SAFETY MEASURES MAINTAINED: BED IN LOWEST LOCKED POSITION WITH SR UP X2. CALL LIGHT W/I EASY REACH OF PT. WILL CONTINUE TO MONITOR.
--- NOTE | 2020-11-29 07:34 | NUR ---
RN CLOSING NOTES PATIENT RESTING IN BED A/O X 4. NO SIGS OF ACUTE DISTRESS. NO COMPLAINTS OF PAIN OR DISCOMFORT.WADE NOTED AND IN PLACE. SAFETY PRECAUTIONS IN PLACE.
[2020-11-29 08:00] VITALS: BP 125/76
[2020-11-29 08:17] LABS: EOSINOPHILS % (MANUAL) 3 % (0-4); LYMPHOCYTES % (MANUAL) 5 % (16-48); MONOCYTES % (MANUAL) 6 % (0-11.0); NEUTROPHILS % (MANUAL) 86 (42-76)
[2020-11-29] MEDS: NYSTATIN (PYXIS) 500,000 UNIT/5 ML ORAL.SUSP PO SCH ×3 (08:44→18:01)
[2020-11-29] MEDS: LEVOTHYROXINE SODIUM 75 MCG TABLET PO SCH (08:44)
[2020-11-29] MEDS: CHLORHEXIDINE GLUCONATE 15 ML UDC MM SCH ×2 (08:44→18:01)
[2020-11-29] MEDS: DAKINS QUARTER STRENGTH (0.125%) 480 ML BOTTLE TOP SCH (08:45)
[2020-11-29] MEDS: CLOTRIMAZOLE 1% 15 GM TUBE TP SCH ×2 (08:45→18:02)
[2020-11-29] MEDS: ACETAMINOPHEN 325 MG TABLET PO PRN (08:50)
[2020-11-29 12:00] VITALS: BP 124/65
--- NOTE | 2020-11-29 12:20 | NUR ---
RN NOTES PT WITH LOW HGB 6.[address] GALLARDO WITH NO ORDER OF BLOOD TRANSFUSION TODAY. BLOOD WORKS TO BE TAKEN TOMORROW.
[2020-11-29] MEDS ORDERED: ANESTHESIA TRAY IN PYXIS 1 EA TRAY MC ONE (15:45)
[2020-11-29 16:10] VITALS: BP 138/68
--- NOTE | 2020-11-29 18:35 | NUR ---
RN NOTES PT WITH ORDER FOR EGD TOMORROW BY DR CARDENAS. PT REFUSED THE PROCEDURE STATED THAT SHE HAD EGD LESS THAN A YEAR AGO AND NO FINDINGS VERBALIZED. WILL CONTINUE TO MONITOR.
--- NOTE | 2020-11-29 18:51 | NUR ---
TRACER BULLET CHARGING MACHINE OPERATOR CLOSING NOTES PT IN BED AWAKE, A/O X4. ABLE TO MAKE NEEDS KNOWN, DENIES PAIN OR ANY DISCOMFORTS AT THIS TIME. ON 02 VIA N/C AT 2LPM, TOLERATING WELL WITH NO ACUTE RESPIRATORY DISTRESS NOTED. SANTI MIDLINE IN PLACE AND FLUSHES WELL. EXTERNAL MONITOR SHOWS CURRENT READING OF NSR WITH HR AT 79, NO C/O CARDIAC DISTRESS VOICED. RIGHT FEMORAL HD CATH IN PLACE WITH DRESSING C/D/I. WADE CATHETER IN PLACE AND ACTIVELY DRAINING CLEAR YELLOW URINE TO BEDSIDE URINARY BAG. SAFETY MEASURES MAINTAINED: BED IN LOWEST LOCKED POSITION WITH SIDE RAILS UP X2. CALL LIGHT W/I EASY REACH OF PT. WILL ENDORSE PLAN OF CARE TO ONCOMING NURSE.
[2020-11-29 20:00] VITALS: BP 127/62
--- NOTE | 2020-11-29 20:00 | NUR ---
OPENING NOTES: RECIEIVED PATIENT ON BED, ASLEEP, EASILY AWAKENS. NO COMPLAINS OF PAIN THIS TIME. NO FACIAL GRIMACE NOTED. PATIENT HAS HD ACCESS IN RIGHT FEMORAL GROIN AREA. WADE CATHETER IN PLACE DRAINING CLEAR YELLOW URINE. PER REPORT PATIENT REFUSED FOR EGD PROCEDURE SCHEDULED FOR TOMORROW 11/30/20. MD MADE AWARE. WILL ADMINISTER ORDERED MEDICATIONS.WILL CONTINUE TO MONITOR PATIENT.
[2020-11-29] MEDS: CEFTRIAXONE 1 G in IV D5W 50 ML IV SCH (20:47)
[2020-11-29] MEDS ORDERED: VANCOMYCIN 1 GM in IV D5W 250 ML IV SCH (21:00)
[2020-11-30] VITALS: BP 139/81
[2020-11-30] MEDS: ACETAMINOPHEN 325 MG TABLET PO PRN (00:29)
--- NOTE | 2020-11-30 07:00 | NUR ---
CLOSING NOTES: PATIENT IS IN BED, SLEPT COMFORTABLY DURING THE NIGHT. ADMINISTERED ORDERED MEDICATIONS. WADE CATH IN PLACE. RIGHT FEMORAL CATH IN PLACE HD ACCESS. NO RESPIRATORY DISTRESS NOTED. NO FACIAL GRIMACE NOTED THIS TIME. WILL CONTINUE TO MONITOR PATIENT. WILL ENDORSE PATIENT TO ONCOMING NURSE.
[2020-11-30 07:10] LABS: BASOPHILS % (AUTO) 0.2 % (0.0-2.0); EOSINOPHILS % (AUTO) 2.4 % (0.0-6.0); HEMATOCRIT 21 % (33-45); LYMPHOCYTES # (AUTO) 0.4 /CMM (0.8-4.8); LYMPHOCYTES % (AUTO) 2.9 % (20.0-44.0); MEAN CORPUSCULAR HGB CONC 32 g/dl (31.0-36.0); MEAN CORPUSCULAR VOLUME 90 fL (82-100); MONOCYTES # (AUTO) 0.8 /CMM (0.1-1.30); MONOCYTES % (AUTO) 6.1 % (2.0-12.0); NEUTROPHILS # (AUTO) 12.4 /CMM (1.8-8.9); NEUTROPHILS % (AUTO) 88.4 % (43.0-81.0); PLATELET COUNT (AUTO) 219 /CMM (150-450); RED BLOOD CELL COUNT(AUTO) 2.29 MIL/uL (4.0-5.2)
[2020-11-30 07:20] LABS: CALCIUM, SERUM 8.4 mg/dL (8.5-10.1); POTASSIUM 3.9 mmol/L (3.5-5.1)
[2020-11-30 07:45] LABS: CREATININE 8.3 mg/dL (0.6-1.3)
[2020-11-30 07:58] LABS: HEMOGLOBIN 6.6 g/dL (11.5-14.8)
[2020-11-30 08:00] VITALS: BP 140/72
[2020-11-30] MEDS: LEVOTHYROXINE SODIUM 75 MCG TABLET PO SCH (08:16)
[2020-11-30] MEDS: NYSTATIN (PYXIS) 500,000 UNIT/5 ML ORAL.SUSP PO SCH ×3 (08:16→17:39)
[2020-11-30] MEDS: CHLORHEXIDINE GLUCONATE 15 ML UDC MM SCH ×2 (08:16→17:39)
[2020-11-30] MEDS: CLOTRIMAZOLE 1% 15 GM TUBE TP SCH ×2 (08:29→17:39)
[2020-11-30] MEDS: DAKINS QUARTER STRENGTH (0.125%) 480 ML BOTTLE TOP SCH (08:30)
[2020-11-30 08:51] LABS: EOSINOPHILS % (MANUAL) 1 % (0-4); LYMPHOCYTES % (MANUAL) 5 % (16-48); MONOCYTES % (MANUAL) 7 % (0-11.0); NEUTROPHILS % (MANUAL) 87 (42-76)
[2020-11-30 08:58] LABS: MAGNESIUM 2.2 mg/dL (1.8-2.4)
[2020-11-30 09:10] LABS: PHOSPHORUS 9.1 mg/dL (2.5-4.9)
[2020-11-30] MEDS ORDERED: PEG 3350/NA SULF,BICARB,CL/KCL 4,000 ML BOTTLE PO ONE (11:00)
[2020-11-30 12:00] VITALS: BP 134/72
--- NOTE | 2020-11-30 12:41 | NUR ---
COMMUNITY LIAISON NOTES PATIENT REFUSING COLONOSCOPY PREP. MADE AWARE.
[2020-11-30 16:00] VITALS: BP 146/61
--- NOTE | 2020-11-30 16:34 | NUR ---
LINE MECHANIC NOTES PATIENT REFUSING COLONOSCOPY DESPITE EXPLANATION OR RISKS AND BENEFITS. MD MADE AWARE.
[2020-11-30 20:00] VITALS: BP 104/65
--- NOTE | 2020-11-30 20:00 | NUR ---
TIME CLOCK MECHANIC NOTES PATIENT CURRENTLY ON HD TOLERATING IT WELL. WILL ADMINISTER IV ATB AFTER HD.
[2020-11-30] MEDS: CEFTRIAXONE 2 G in IV D5W 100 ML IV SCH (21:19)
--- NOTE | 2020-11-30 21:29 | NUR ---
KETTLE WORKER NOTES PATIENT IN BED RESTING. COMPLETED HD TOLERATED WELL. PATIENT SLEEPING. IV ATB ADMINISTERED. NO ACUTE CHANGES NOTED DURING SHIFT. ALL DUE MEDICATIONS ADMINISTERED. ALL NEEDS MET. WILL ENDORSE CARE TO PM SHIFT.
[2020-11-30] MEDS: VANCOMYCIN POST DIALYSIS 500MG IV PRN ×2 (22:18)
--- NOTE | 2020-11-30 22:33 | NUR ---
telern VANCO 500MG IVPB ADMINISTERED POST HD. SNACKS PROVIDED. NO OTHER NEEDS MADE. KEPT COMFORTABLE.
[2020-12-01] VITALS (9 sets, daily range): BP systolic 121–135; BP diastolic 54–78
--- NOTE | 2020-12-01 02:38 | NUR ---
TELERN SLEEPING, CONTINUED MONITORING
[2020-12-01 06:07] LABS: BASOPHILS % (AUTO) 0.1 % (0.0-2.0); EOSINOPHILS % (AUTO) 2.3 % (0.0-6.0); HEMATOCRIT 21 % (33-45); LYMPHOCYTES # (AUTO) 0.5 /CMM (0.8-4.8); LYMPHOCYTES % (AUTO) 3.4 % (20.0-44.0); MEAN CORPUSCULAR HGB CONC 32 g/dl (31.0-36.0); MEAN CORPUSCULAR VOLUME 89 fL (82-100); MONOCYTES # (AUTO) 1.2 /CMM (0.1-1.30); MONOCYTES % (AUTO) 7.9 % (2.0-12.0); NEUTROPHILS # (AUTO) 13.2 /CMM (1.8-8.9); NEUTROPHILS % (AUTO) 86.3 % (43.0-81.0); PLATELET COUNT (AUTO) 216 /CMM (150-450); WHITE BLOOD COUNT (AUTO) 15.3 K/uL (4.3-11.0)
[2020-12-01 06:18] LABS: HEMOGLOBIN 6.6 g/dL (11.5-14.8)
[2020-12-01 06:24] LABS: CREATININE 6.3 mg/dL (0.6-1.3); POTASSIUM 3.7 mmol/L (3.5-5.1)
[2020-12-01] MEDS: LEVOTHYROXINE SODIUM 75 MCG TABLET PO SCH (07:11)
--- NOTE | 2020-12-01 07:19 | NUR ---
REGISTERED RESPIRATORY THERAPIST OPENING NOTES RECEIVED PT AWAKE IN BED IN NO ACUTE SIGNS OF DISTRESS. A/O X4. ABLE TO MAKE NEEDS KNOWN, DENIES PAIN OR ANY DISCOMFORTS AT THIS TIME. ON 02 VIA N/C AT 2LPM, TOLERATING WELL WITH NO SOB NOTED. SANTI MIDLINE IN PLACE AND FLUSHES WELL. TELE-MONITORING SHOWS CURRENT READING OF NSR WITH HR ON THE 70'S, NO C/O CARDIAC DISTRESS VOICED. RIGHT FEMORAL HD CATH IN PLACE WITH DRESSING C/D/I. WADE CATHETER IN PLACE AND ACTIVELY DRAINING CLEAR YELLOW URINE VIA GRAVITY. SAFETY MEASURES IN PLACE: BED IN LOWEST LOCKED POSITION WITH SR UP X2. CALL LIGHT W/I EASY REACH OF PT. WILL CONTINUE TO MONITOR.
[2020-12-01] MEDS: NYSTATIN (PYXIS) 500,000 UNIT/5 ML ORAL.SUSP PO SCH ×3 (09:20→16:45)
[2020-12-01] MEDS: CHLORHEXIDINE GLUCONATE 15 ML UDC MM SCH ×2 (09:20→16:45)
[2020-12-01] MEDS: CLOTRIMAZOLE 1% 15 GM TUBE TP SCH ×2 (09:21→16:47)
[2020-12-01] MEDS: DAKINS QUARTER STRENGTH (0.125%) 480 ML BOTTLE TOP SCH (09:21)
[2020-12-01] MEDS: MINERAL OIL/PETROLATUM,WHITE 120 GM JAR TP PRN (09:22)
[2020-12-01 09:44] LABS: BAND % (MANUAL) 2 % (0.0-5.0); LYMPHOCYTES % (MANUAL) 6 % (16-48); MONOCYTES % (MANUAL) 4 % (0-11.0); NEUTROPHILS % (MANUAL) 88 (42-76)
--- NOTE | 2020-12-01 10:51 | NUR ---
RN NOTES RECEIVED CALL FROM TORO PRITCHETT WITH ORDERS TO OBTAIN CONSENT FOR PERMA CATHETER INSERTION TOMORROW AND TO PUT PT ON NPO POST MIDNIGHT. WILL CARRY PUT ORDERS.
[2020-12-01] MEDS: PANTOPRAZOLE 40 MG VIAL IV SCH ×2 (12:11→20:26)
--- NOTE | 2020-12-01 13:30 | NUR ---
RN NOTES PT FOR PERMA CATH INSERTION TOMORROW BY TORO PRITCHETT. EXPLAINED PROCEDURES TO PT AND VERBALIZED UNDERSTANDING. CONSENTS SIGNED AND FILED IN CHART. WILL ENFORCED NPO POST MIDNIGHT.
--- NOTE | 2020-12-01 14:59 | NUR ---
RN notes Received call from Petros Herrera with order to do PT/INR tonight @ 1999 after blood transfusion. Will endorse.
--- NOTE | 2020-12-01 15:04 | NUR ---
RN NOTES PT WITH HGB 6.6 TODAY, BLOOD TRANSFUSION OF PRBC X1, 336 ML STARTED VIA SANTI MIDLINE. VS TAKEN AND RECORDED. WILL MONITOR FOR ANY ADVERSE/ALLERGIC REACTIONS.
--- NOTE | 2020-12-01 15:26 | NUR ---
RN NOTES AFTER 15 MINUTES OF BLOOD TRANSFUSION, NO ADVERSE/ALLERGIC REACTIONS. V/S TAKEN AND RECORDED. WILL CONTINUE TO MONITOR.
--- NOTE | 2020-12-01 18:04 | NUR ---
RN NOTES BLOOD TRANSFUSION OF PRBC X1 FINISHED, PT TOLERATED WELL WITH NO ADVERSE /ALLERGIC REACTIONS NOTED. V/S TAKEN AND RECORDED. WILL CONTINUE TO MONITOR.
--- NOTE | 2020-12-01 18:47 | NUR ---
SAFETY INSTRUCTOR CLOSING NOTES PT AWAKE IN BED AT THIS TIME. A/O X4. ABLE TO MAKE NEEDS KNOWN. FOR PERMA CATH INSERTION TOMORROW, NPO WILL BE ENFORCED POST MIDNIGHT AND PT IS AWARE. ON 02 VIA N/C AT 2LPM, TOLERATING WELL WITH NO SOB NOTED. SANTI MIDLINE IN PLACE AND FLUSHES WELL. TELE-MONITORING SHOWS CURRENT READING OF NSR WITH HR ON THE 70'S, NO C/O CARDIAC DISTRESS VOICED. RIGHT FEMORAL HD CATH IN PLACE WITH DRESSING C/D/I. WADE CATHETER IN PLACE AND ACTIVELY DRAINING CLEAR YELLOW URINE VIA GRAVITY, WADE CARE DONE. PT KEPT CLEAN, DRY AND COMFORTABLE. ALL NEEDS AND CARE ATTENDED WELL. ALL SAFETY MEASURES KEPT IN PLACE: BED IN LOWEST LOCKED POSITION WITH SR UP X2. CALL LIGHT W/I EASY REACH OF PT. WILL ENDORSE TO SAP BASIS NURSE FOR MIKE
[2020-12-01] MEDS: CEFTRIAXONE 2 G in IV D5W 100 ML IV SCH (20:26)
[2020-12-01] MEDS: ACETAMINOPHEN 325 MG TABLET PO PRN (22:17)
[2020-12-02] VITALS: BP 125/60
--- NOTE | 2020-12-02 06:30 | NUR ---
LOGISTICS TEAM LEAD CLOSING NOTES PT AWAKE IN BED. A/O X4. SCHEDULED FOR PERMA CATH INSERTION TODAY NPO SINCE MIDNIGHT 02 VIA N/C AT 2LNC, TOLERATING WELL WITH NO SOB NOTED. SANTI MIDLINE IN PLACE AND FLUSHED DRESSING CDI. TELE-MONITORING READING OF NSR WITH HR IN THE 70'S, RIGHT FEMORAL HD CATH IN PLACE WITH DRESSING C/D/I. WADE CATHETER IN PLACE AND ACTIVELY DRAINING CLEAR YELLOW URINE VIA GRAVITY, WADE CARE DONE. WILL ENDORSE TO ONCOMING SHIFT BED DOWN LOCKED SRX2
[2020-12-02 06:31] LABS: BASOPHILS % (AUTO) 0.3 % (0.0-2.0); EOSINOPHILS % (AUTO) 2.8 % (0.0-6.0); HEMATOCRIT 23 % (33-45); HEMOGLOBIN 7.6 g/dL (11.5-14.8); LYMPHOCYTES # (AUTO) 0.6 /CMM (0.8-4.8); LYMPHOCYTES % (AUTO) 4.5 % (20.0-44.0); MEAN CORPUSCULAR HGB CONC 32 g/dl (31.0-36.0); MEAN CORPUSCULAR VOLUME 90 fL (82-100); MONOCYTES # (AUTO) 1.2 /CMM (0.1-1.30); MONOCYTES % (AUTO) 8.4 % (2.0-12.0); NEUTROPHILS # (AUTO) 11.7 /CMM (1.8-8.9); PLATELET COUNT (AUTO) 213 /CMM (150-450); RED BLOOD CELL COUNT(AUTO) 2.61 MIL/uL (4.0-5.2)
[2020-12-02] MEDS: LEVOTHYROXINE SODIUM 75 MCG TABLET PO SCH (07:30)
[2020-12-02 07:35] LABS: CALCIUM, SERUM 8.5 mg/dL (8.5-10.1); CREATININE 7.1 mg/dL (0.6-1.3); POTASSIUM 3.8 mmol/L (3.5-5.1)
--- NOTE | 2020-12-02 07:55 | NUR ---
BUCKLE STRAP PUNCHER CLOSING NOTES PT AWAKE IN BED AT THIS TIME. A/O X4. ABLE TO MAKE NEEDS KNOWN. FOR PERMA CATH INSERTION TOMORROW, NPO WILL BE ENFORCED POST MIDNIGHT AND PT IS AWARE. ON 02 VIA N/C AT 2LPM, TOLERATING WELL WITH NO SOB NOTED. SANTI MIDLINE IN PLACE AND FLUSHES WELL. TELE-MONITORING SHOWS CURRENT READING OF NSR WITH HR ON THE 70'S, NO C/O CARDIAC DISTRESS VOICED. RIGHT FEMORAL HD CATH IN PLACE WITH DRESSING C/D/I. WADE CATHETER IN PLACE AND ACTIVELY DRAINING CLEAR YELLOW URINE VIA GRAVITY, WADE CARE DONE. PT KEPT CLEAN, DRY AND COMFORTABLE. ALL Addendum: 12/02/20 at 0755 by TIFFANY HYDE RN entered in error
[2020-12-02 08:00] VITALS: BP 129/66
--- NOTE | 2020-12-02 08:00 | NUR ---
received pt. in am alert and oriented x4.npo for surgery.
[2020-12-02] MEDS: NYSTATIN (PYXIS) 500,000 UNIT/5 ML ORAL.SUSP PO SCH ×3 (08:46→16:43)
[2020-12-02] MEDS: CHLORHEXIDINE GLUCONATE 15 ML UDC MM SCH ×2 (08:52→16:43)
[2020-12-02] MEDS: PANTOPRAZOLE 40 MG VIAL IV SCH ×2 (08:52→23:08)
[2020-12-02] MEDS: CLOTRIMAZOLE 1% 15 GM TUBE TP SCH ×2 (08:53→18:10)
[2020-12-02] MEDS: DAKINS QUARTER STRENGTH (0.125%) 480 ML BOTTLE TOP SCH (08:54)
--- NOTE | 2020-12-02 09:00 | NUR ---
surgery notified of elevated temp and bun.rn spoke with pat roy.
--- NOTE | 2020-12-02 09:53 | NUR ---
WOUND CARE CONSULT: PT SEEN FOR RT LEG EDEMA, REDNESS/DISCOLORATION AND DRAINAGE. DISCUSSED WITH DR CHAIDEZ AND NEW ORDERS RECEIVED. RECOMMENDATIONS MADE FOR SKIN PROTECTION. DISCUSSED WITH NURSING STAFF. MD IN AGREEMENT WITH PLAN OF CARE.
[2020-12-02] MEDS ORDERED: LIDOCAINE 5% OINT 35.44 GM TUBE TP PRN (10:00)
[2020-12-02] MEDS ORDERED: LIDOCAINE HCL/MPF 1% 30 ML VIAL IJ ONE (10:15)
[2020-12-02] MEDS ORDERED: HEPARIN SODIUM, PORCINE 1,000 UNIT/ML VIAL ONE (10:15)
[2020-12-02] MEDS ORDERED: FENTANYL PF 100MCG/2ML AMPUL ONE (10:17)
--- NOTE | 2020-12-02 10:20 | NUR ---
left for or via bed.
[2020-12-02 12:00] VITALS: BP 125/63
--- NOTE | 2020-12-02 12:05 | NUR ---
returned to .perma cath dressing dry and intact.vsstable.no complaints offered.sherri reece and dr. wade in to see pt.
[2020-12-02 16:00] VITALS: BP 121/64
[2020-12-02] MEDS: HYDROCODONE/APAP 5/325MG TABLET PO PRN (16:44)
--- NOTE | 2020-12-02 17:47 | NUR ---
no chg. in status.
[2020-12-02] MEDS: ONDANSETRON HCL/PF 4 MG/2 ML VIAL IVP PRN (18:14)
--- NOTE | 2020-12-02 18:15 | NUR ---
medicated for nausea with zofran
--- NOTE | 2020-12-02 20:00 | NUR ---
MS/TELE/RN RECEIVED PATIENT ON BED AWAKE, ALERT, ORIENTED, COMFORTABLE, NO C/O PAIN,NO DISTRESS NOTED, CALL LIGHT IN REACH. WILL MONITOR.
[2020-12-02 20:33] VITALS: BP 106/57
[2020-12-02] MEDS: CEFTRIAXONE 2 G in IV D5W 100 ML IV SCH (22:38)
[2020-12-03 00:48] VITALS: BP 136/58
--- NOTE | 2020-12-03 02:56 | NUR ---
MS/TELE/RN PATIENT IS SLEEPING AT THIS TIME, APPEAR COMFORTABLE, NO DISTRESS NOTED, CALL LIGHT IN REACH. WILL CONTINUE TO MONITOR.
[2020-12-03 03:58] VITALS: BP 132/66
[2020-12-03] MEDS: ACETAMINOPHEN 325 MG TABLET PO PRN (05:08)
[2020-12-03 06:26] LABS: BASOPHILS % (AUTO) 0.1 % (0.0-2.0); CALCIUM, SERUM 8.3 mg/dL (8.5-10.1); CREATININE 7.4 mg/dL (0.6-1.3); EOSINOPHILS % (AUTO) 2.3 % (0.0-6.0); HEMATOCRIT 23 % (33-45); HEMOGLOBIN 7.1 g/dL (11.5-14.8); LYMPHOCYTES # (AUTO) 0.6 /CMM (0.8-4.8); LYMPHOCYTES % (AUTO) 3.4 % (20.0-44.0); MEAN CORPUSCULAR HGB CONC 31 g/dl (31.0-36.0); MEAN CORPUSCULAR VOLUME 94 fL (82-100); MONOCYTES # (AUTO) 1.3 /CMM (0.1-1.30); MONOCYTES % (AUTO) 7.7 % (2.0-12.0); NEUTROPHILS # (AUTO) 14.3 /CMM (1.8-8.9); NEUTROPHILS % (AUTO) 86.5 % (43.0-81.0); PLATELET COUNT (AUTO) 221 /CMM (150-450); POTASSIUM 3.9 mmol/L (3.5-5.1); RED BLOOD CELL COUNT(AUTO) 2.44 MIL/uL (4.0-5.2); WHITE BLOOD COUNT (AUTO) 16.6 K/uL (4.3-11.0)
[2020-12-03 07:25] LABS: PHOSPHORUS 8.8 mg/dL (2.5-4.9)
--- NOTE | 2020-12-03 07:30 | NUR ---
MS/RN Opening note Patient received from remote coders. A/O X4, vital signs stable, no fevers noted, room air saturation 97%. Midline to right upper arm flushing well with normal saline, no signs of infiltration seen. Mckenzie catheter with minimal output at this time. Bilateral lower extremities both noted to be with elephantiasis, although more so on the right leg. Will apply ointment and wound care as ordered. Safety measures in place, bed in low setting, call light within reach. Will continue to monitor and ensure safety.
--- NOTE | 2020-12-03 07:32 | NUR ---
MS/RN PATIENT IS SLEEPING, APPEAR COMFORTALBLE, NO DISTRESS NOTED, ENDORSED.
[2020-12-03 08:00] VITALS: BP 130/69
[2020-12-03] MEDS: LEVOTHYROXINE SODIUM 75 MCG TABLET PO SCH (08:11)
[2020-12-03] MEDS: NYSTATIN (PYXIS) 500,000 UNIT/5 ML ORAL.SUSP PO SCH ×3 (08:11→17:10)
[2020-12-03] MEDS: PANTOPRAZOLE 40 MG VIAL IV SCH ×2 (08:12→21:42)
[2020-12-03] MEDS: CHLORHEXIDINE GLUCONATE 15 ML UDC MM SCH ×2 (08:12→17:11)
[2020-12-03] MEDS: CLOTRIMAZOLE 1% 15 GM TUBE TP SCH ×2 (08:14→17:11)
[2020-12-03] MEDS: DAKINS QUARTER STRENGTH (0.125%) 480 ML BOTTLE TOP SCH (09:00)
--- NOTE | 2020-12-03 10:00 | NUR ---
MS/RN S/B Dr Atwood Seen by Dr Atwood - continue to monitor labs, await wound consult.
[2020-12-03 12:00] VITALS: BP 120/69
--- NOTE | 2020-12-03 14:00 | NUR ---
MS/RN S/B Dr Medina Seen by Dr Medina - arrange for renal biopsy. No order given to obtain consent at this time.
[2020-12-03 16:00] VITALS: BP 128/56
--- NOTE | 2020-12-03 17:44 | NUR ---
MS/RN S/B Mis (wound care) Seen by wound care - continue with current wound treatment. Consider follow up with wound and vascular doctors at [facility] once discharged.
--- NOTE | 2020-12-03 18:40 | NUR ---
MS/RN End note Patient remains in stable condition. Awaiting orders from Dr Medina to consent patient for renal biopsy. All questions and concerns addressed. Will endorse to night time nanny.
--- NOTE | 2020-12-03 19:30 | NUR ---
TELE VACUUM TANK TENDER INITIAL NOTES RECEIVED REPORT FROM AM NURSE WHILE PT IN BED ON DIALYSIS AT THIS TIME. SHE 'S A/O X4, DENIES ANY PAIN OR ANY DISCOMFORT. NOT IN ANY ACUTE DISTRESS NOTED AT THIS TIME. AWARE HOW TO USED THE CALL LIGHT SYSTEM SO I ENCOURAGE HER TO USE IF SHE NEEDS SOME HELP OR NEED THE NURSE. KEPT HER WARM AND COMFORTABLE AT ALL TIMES. PLACE CALL LIGHT AT REACH. WILL CONTINUE MONITORING.
[2020-12-03 20:00] VITALS: BP 109/77
--- NOTE | 2020-12-03 21:30 | NUR ---
ms rice notes Dialysis was done, seen pt awake and alert , denies any pain or any discomfort. 1300L output per dialysis nurse . Vitals signs within normal limit. no signs of any acute distress noted. will continue monitoring.
[2020-12-03] MEDS: CEFTRIAXONE 2 G in IV D5W 100 ML IV SCH (21:43)
[2020-12-03] MEDS ORDERED: VANCOMYCIN 500 MG in IV D5W 100ml IV ONE (22:00)
[2020-12-03] MEDS: VANCOMYCIN POST DIALYSIS 500MG IV PRN ×2 (22:57)
[2020-12-04] VITALS (10 sets, daily range): BP systolic 105–148; BP diastolic 49–71
[2020-12-04 06:48] LABS: BASOPHILS % (AUTO) 0.2 % (0.0-2.0); EOSINOPHILS % (AUTO) 1.8 % (0.0-6.0); LYMPHOCYTES # (AUTO) 0.5 /CMM (0.8-4.8); MEAN CORPUSCULAR HGB CONC 32 g/dl (31.0-36.0); MEAN CORPUSCULAR VOLUME 90 fL (82-100); MONOCYTES # (AUTO) 1.5 /CMM (0.1-1.30); MONOCYTES % (AUTO) 9.7 % (2.0-12.0); NEUTROPHILS # (AUTO) 13.5 /CMM (1.8-8.9); NEUTROPHILS % (AUTO) 85.3 % (43.0-81.0); PLATELET COUNT (AUTO) 207 /CMM (150-450); RED BLOOD CELL COUNT(AUTO) 2.26 MIL/uL (4.0-5.2); WHITE BLOOD COUNT (AUTO) 15.8 K/uL (4.3-11.0)
[2020-12-04 06:56] LABS: CALCIUM, SERUM 8.2 mg/dL (8.5-10.1); CREATININE 5.8 mg/dL (0.6-1.3); POTASSIUM 3.7 mmol/L (3.5-5.1)
--- NOTE | 2020-12-04 07:03 | NUR ---
ms traffic clerk closing notes pt just woke up and morning care done with the helped of research consultant. She slept well and stable throughout the night. all due meds given and all needs met. Tele Sinus Rhythm heart rate 80 per monitor. kept her warm and comfortable at all times. place call light at reach. will endorse to am nurse for continuity of care.
[2020-12-04 07:09] LABS: MAGNESIUM 1.8 mg/dL (1.8-2.4); PHOSPHORUS 6.2 mg/dL (2.5-4.9)
--- NOTE | 2020-12-04 07:20 | NUR ---
MS/ RN OPENING NOTES PT RECEIVED FROM GUZZLER BUILDER. A/O X4. NO FEVER NOTED. NO S/S OF INFECTION. SANTI MIDLINE FLUSHING WELL. PATENT, NO SIGS ON INFILTRATION. WILL APPLY OINTMENT AND WOUND CARE NOTED. WILL CONTINUE PLAN OF CARE.
[2020-12-04 07:45] LABS: HEMATOCRIT 20 % (33-45); HEMOGLOBIN 6.6 g/dL (11.5-14.8)
[2020-12-04] MEDS: LEVOTHYROXINE SODIUM 75 MCG TABLET PO SCH (07:49)
--- NOTE | 2020-12-04 07:51 | NUR ---
MS/RN Critical lab value. Call received from lab, H&H critical at 6.05/17. Dr Atwood paged to notify, awaiting orders.
--- NOTE | 2020-12-04 08:08 | NUR ---
MS/RN Orders Order obtained from Dr Atwood to transfuse one unit PRBC.
[2020-12-04] MEDS: PANTOPRAZOLE 40 MG VIAL IV SCH ×2 (08:12→21:00)
[2020-12-04] MEDS: CHLORHEXIDINE GLUCONATE 15 ML UDC MM SCH ×2 (08:12→16:49)
[2020-12-04] MEDS: DAKINS QUARTER STRENGTH (0.125%) 480 ML BOTTLE TOP SCH (08:13)
[2020-12-04] MEDS: CLOTRIMAZOLE 1% 15 GM TUBE TP SCH ×2 (08:13→16:50)
--- NOTE | 2020-12-04 10:01 | NUR ---
MS/RN S/B Dr Galvez Seen by Dr Galvez - cleared from cardiology standpoint for EGD/ colonoscopy. No need for lower extremity work up as no signs of PAD.
--- NOTE | 2020-12-04 10:03 | NUR ---
MS/RN S/B Dr Pulido Seen by DNP - GI consult ordered as H&H continues to drop, repeat labs ordered.
--- NOTE | 2020-12-04 11:09 | NUR ---
MS/RN Orders Patient to be NPO from midnight, for possible EGD tomorrow, no order to obtain consent at this time. Patient made aware of plan and is in agreement. Nystatin powder ordered to abdominal folds fungal rash.
[2020-12-04 11:28] LABS: BAND % (MANUAL) 1 % (0.0-5.0); LYMPHOCYTES % (MANUAL) 10 % (16-48); MONOCYTES % (MANUAL) 1 % (0-11.0); NEUTROPHILS % (MANUAL) 88 (42-76)
--- NOTE | 2020-12-04 14:30 | NUR ---
MS/RN Blood transfusion One unit of blood collected from lab, verified by two licensed nurses at bedside. Visual inspection of blood completed, no clots or visual abnormalities seen. Blood transfusion started, all vitals documented as per hospital protocol. Will monitor and ensure no adverse reaction. Patient informed to notify nurse if experiencing any itching, or other possible reaction to the blood. Stated understanding.
[2020-12-04] MEDS: NYSTATIN TOP POWDER 15 GM BOTTLE TP SCH (16:58)
[2020-12-04 17:07] LABS: OCCULT BLOOD STOOL NEGATIVE (NEGATIVE)
--- NOTE | 2020-12-04 17:27 | NUR ---
MS/RN Transfusion completed Blood transfusion completed, no reaction seen, vital signs remained within normal range throughout transfusion.
--- NOTE | 2020-12-04 18:39 | NUR ---
MS/ RN CLOSING NOTES PT IN BED AWAKE AT THIS TIME. NO SIGNIFICANT CHANGES. NO SIDE EFFECTS/ ADVERSE REACTIONS. PT IS AWARE OF NPO ORDER. PT ON 2L NC. SPO2 ON 98%. TOLERATING WELL. SANTI MIDLINE FLUSHING WELL. PATENT, NO SIGNS OF INFILTRATION. ENDORSE TO SR VICE PRESIDENT. WILL CONTINUE PLAN OF CARE.
--- NOTE | 2020-12-04 19:30 | NUR ---
BROADCAST OPERATIONS ENGINEER OPENING NOTES RECEIVED PATIENT IN BED AWAKE, ALERT AND ORIENTED X4. NO S/SX OF ACUTE RESPIRATORY DISTRESS NOTED. DENIES ANY PAIN OR ANY DISCOMFORT AT THIS TIME. IV ACCESS ON SANTI MIDLINE PATENT AND INTACT. NPO MIDNIGHT FOR POSSIBLE EGD. ON TELE READING SR 75. SAFETY PRECAUTIONS IN PLACE. CALL LIGHT WITHIN EASY REACH. KEPT WARM AND COMFORTABLE AT ALL TIMES. WILL CONTINUE TO MONITOR.
[2020-12-04] MEDS: CEFTRIAXONE 2 G in IV D5W 100 ML IV SCH (19:34)
[2020-12-05] VITALS (7 sets, daily range): BP systolic 96–130; BP diastolic 54–66
[2020-12-05 06:26] LABS: BASOPHILS % (AUTO) 0.4 % (0.0-2.0); EOSINOPHILS % (AUTO) 2.7 % (0.0-6.0); HEMATOCRIT 22 % (33-45); LYMPHOCYTES # (AUTO) 0.6 /CMM (0.8-4.8); LYMPHOCYTES % (AUTO) 4.7 % (20.0-44.0); MEAN CORPUSCULAR HGB CONC 32 g/dl (31.0-36.0); MEAN CORPUSCULAR VOLUME 91 fL (82-100); MONOCYTES # (AUTO) 1.6 /CMM (0.1-1.30); MONOCYTES % (AUTO) 12.9 % (2.0-12.0); NEUTROPHILS # (AUTO) 9.7 /CMM (1.8-8.9); NEUTROPHILS % (AUTO) 79.3 % (43.0-81.0); PLATELET COUNT (AUTO) 216 /CMM (150-450); WHITE BLOOD COUNT (AUTO) 12.3 K/uL (4.3-11.0)
[2020-12-05 06:41] LABS: CALCIUM, SERUM 8.3 mg/dL (8.5-10.1); CREATININE 6.4 mg/dL (0.6-1.3); PHOSPHORUS 7.2 mg/dL (2.5-4.9); POTASSIUM 3.8 mmol/L (3.5-5.1)
--- NOTE | 2020-12-05 06:50 | NUR ---
PRINTED CIRCUIT DESIGNER CLOSING NOTES PATIENT IN BED AWAKE, ALERT AND ORIENTED X4. ABLE TO VERBALIZE NEEDS. NO S/SX OF ACUTE RESPIRATORY DISTRESS NOTED. DENIES ANY PAIN OR ANY DISCOMFORT AT THIS TIME. IV ACCESS ON SANTI, MIDLINE PATENT AND INTACT. ON NPO FOR EGD TODAY. ON TELE READING SR 77. SAFETY PRECAUTIONS IN PLACE. WILL ENDORSE TO DAY SHIFT NURSE FOR CONTINUITY OF CARE.
--- NOTE | 2020-12-05 06:58 | NUR ---
MS [facility] NOTE: HGB RESULT 7.0 RECEIVED A CALL FROM LAB, PATIENT HGB LEVEL WAS 7.0 PAGED [facility]U [place], NOTIFIED REGARDING ABNORMAL LAB RESULTS. AWAITING ORDERS. Addendum: 12/05/20 at 0732 by SURENDRA RIDER RN ENDORSED TO DAY SHIFT NURSE FOR CONTINUITY OF CARE REGARDING HGB LEVEL 7.0
[2020-12-05] MEDS: LEVOTHYROXINE SODIUM 75 MCG TABLET PO SCH (07:30)
--- NOTE | 2020-12-05 07:57 | NUR ---
MS/ RN OPENING NOTES PT RECEIVED. PT LAYING IN BED. NO COMPLAINTS. NO APPARENT SIGNS OF DISCOMFORT OR DISTRESS. PT ON 2L NASAL CANNULA. PT NPO SINCE MIDNIGHT. PT A/OX4. PT AWARE OF EGD. WAITING FOR DRYING RACK CHANGER. HEMOGLOBIN 7.0. WILL CONTINUE PLAN OF CARE.
[2020-12-05] MEDS: PANTOPRAZOLE 40 MG VIAL IV SCH ×2 (08:58→20:56)
[2020-12-05] MEDS: CHLORHEXIDINE GLUCONATE 15 ML UDC MM SCH ×2 (08:58→16:31)
[2020-12-05] MEDS: NYSTATIN TOP POWDER 15 GM BOTTLE TP SCH ×2 (09:12→16:31)
[2020-12-05] MEDS: DAKINS QUARTER STRENGTH (0.125%) 480 ML BOTTLE TOP SCH (09:12)
[2020-12-05] MEDS: CLOTRIMAZOLE 1% 15 GM TUBE TP SCH ×2 (09:12→16:31)
[2020-12-05] MEDS: ACETAMINOPHEN 325 MG TABLET PO PRN (17:45)
--- NOTE | 2020-12-05 18:50 | NUR ---
MS / RN CLOSING NOTES PT LAYING IN BED. ALERT AND ORIENTED X4. CALM AND COOPERATIVE. PATIENT PM DIALYSIS. 2 LITERS REMOVED. PERFORMED WOUND CARE ON AFFECTED RIGHT LEG ORDERED. MIDLINE SANTI FLUSHING WELL. PATENT. NO OCCLUSIONS, NO INFILTRATIONS. WILL ENDORSE TO MATTRESS SPRING ENCASER. WILL CONTINUE PLAN OF CARE.
--- NOTE | 2020-12-05 19:10 | NUR ---
RN NOTE Patient Received. Patient is noted in bed, awake, alert and oriented x4. Breathing is even and non labored continues on 2L via NC with no signs of acute distress or shortness of breath. Patient is noted with SANTI midline noted to be patent and intact. Patient is noted with BLE edema +4. Dressing to RLE noted in place with no bleeding or drainage noted. Mckenzie catheter is intact, patent, with no sedimentation noted. HD site is noted to RU chest wall. Safety precautions in place with bed noted in lowest position and locked. Call light within reach. All needs attended to promptly. Will continue plan of care as ordered.
[2020-12-05] MEDS: CEFTRIAXONE 2 G in IV D5W 100 ML IV SCH (19:56)
[2020-12-06] VITALS (9 sets, daily range): BP systolic 100–133; BP diastolic 50–79
[2020-12-06] MEDS: ACETAMINOPHEN 325 MG TABLET PO PRN (01:11)
--- NOTE | 2020-12-06 01:13 | NUR ---
RN Note Patient noted verbalizing increased leg pain. PRN Tylenol administered.
--- NOTE | 2020-12-06 07:32 | NUR ---
RN NOTE Patient is noted in bed, awake, alert and oriented x4. Breathing is even and non labored continues on 2L via NC with no signs of acute distress or shortness of breath. Patient is noted with SANTI midline noted to be patent and intact. Patient is noted with BLE edema +4. Dressing to RLE noted in place with no bleeding or drainage noted. Mckenzie catheter is intact, patent, with no sedimentation noted. HD site is noted to RU chest wall. Safety precautions in place with bed noted in lowest position and locked. Call light within reach. All needs attended to promptly. Will endorse to continue plan of care as ordered.
[2020-12-06] MEDS: LEVOTHYROXINE SODIUM 75 MCG TABLET PO SCH (07:37)
[2020-12-06] MEDS: HYDROCODONE/APAP 5/325MG TABLET PO PRN (07:38)
--- NOTE | 2020-12-06 07:44 | NUR ---
TRIPE COOKER OPENING NOTE Patient is in bed, awake and verbally responsive. alert and oriented x4, able to make needs known. Breathing is even and unlabored, on 2L O2 via NC no shortness of breath. SANTI midline patent and intact; HD site R chest wall, dressing c/d/i. Dressing to RLE noted as well. Mckenzie catheter is in place, draining urine of yellow color. Requested for pain medication, Randolph prn given. Safety precautions in place: bed locked and on lowest position, sr up x2, call light within reach. Will continue to monitor. Addendum: 12/06/20 at 0749 by MAHIN RIVERA RN Patient on tele monitoring, w/ reading of SR, hr in the 80's, no cardiac distress noted.
[2020-12-06 08:32] LABS: BASOPHILS # (AUTO) 0.1 /CMM (0.0-0.2); BASOPHILS % (AUTO) 0.6 % (0.0-2.0); EOSINOPHILS % (AUTO) 2.7 % (0.0-6.0); HEMATOCRIT 21 % (33-45); LYMPHOCYTES # (AUTO) 0.6 /CMM (0.8-4.8); LYMPHOCYTES % (AUTO) 4.9 % (20.0-44.0); MEAN CORPUSCULAR HGB CONC 32 g/dl (31.0-36.0); MEAN CORPUSCULAR VOLUME 91 fL (82-100); MONOCYTES # (AUTO) 1.6 /CMM (0.1-1.30); MONOCYTES % (AUTO) 12.6 % (2.0-12.0); NEUTROPHILS # (AUTO) 10.1 /CMM (1.8-8.9); NEUTROPHILS % (AUTO) 79.2 % (43.0-81.0); PLATELET COUNT (AUTO) 222 /CMM (150-450); RED BLOOD CELL COUNT(AUTO) 2.26 MIL/uL (4.0-5.2); WHITE BLOOD COUNT (AUTO) 12.8 K/uL (4.3-11.0)
[2020-12-06] MEDS: PANTOPRAZOLE 40 MG VIAL IV SCH ×2 (08:48→20:55)
[2020-12-06] MEDS: CHLORHEXIDINE GLUCONATE 15 ML UDC MM SCH ×2 (08:48→16:10)
[2020-12-06] MEDS: NYSTATIN TOP POWDER 15 GM BOTTLE TP SCH ×2 (08:51→16:09)
[2020-12-06] MEDS: DAKINS QUARTER STRENGTH (0.125%) 480 ML BOTTLE TOP SCH (08:51)
[2020-12-06] MEDS: CALAMINE 118 ML BOTTLE TP PRN ×2 (08:51→16:09)
[2020-12-06] MEDS: CLOTRIMAZOLE 1% 15 GM TUBE TP SCH ×2 (08:52→16:09)
[2020-12-06 09:42] LABS: HEMOGLOBIN 6.6 g/dL (11.5-14.8)
[2020-12-06 10:39] LABS: CALCIUM, SERUM 8.3 mg/dL (8.5-10.1); CREATININE 5.7 mg/dL (0.6-1.3); PHOSPHORUS 6.4 mg/dL (2.5-4.9); POTASSIUM 3.8 mmol/L (3.5-5.1)
--- NOTE | 2020-12-06 11:21 | NUR ---
RN NOTES RECEIVED CALL FROM LAB REGARDING CRITICAL RESULT OF HGB/HCT; DR. MCCRACKEN IN THE UNIT AND MADE AWARE W/ ORDERS NOTED.
--- NOTE | 2020-12-06 12:47 | NUR ---
RN NOTES PICKED UP 1PRBC FROM LAB FOR BT; CONSENT AND PATIENT INFO VERIFIED, COSIGNED BY KENNY ORTIZ. VS TAKEN AND RECORDED. WILL MONITOR FOR ADVERSE REACTION.
[2020-12-06 13:37] LABS: EOSINOPHILS % (MANUAL) 5 % (0-4); LYMPHOCYTES % (MANUAL) 3 % (16-48); MONOCYTES % (MANUAL) 5 % (0-11.0); NEUTROPHILS % (MANUAL) 87 (42-76)
[2020-12-06] MEDS ORDERED: PEG 3350/NA SULF,BICARB,CL/KCL 4,000 ML BOTTLE PO ONE (14:30)
--- NOTE | 2020-12-06 16:21 | NUR ---
RN NOTES PATIENT FINISHED BT OF 1PRBC; NO TRANSFUSION REACTION NOTED. POST-TRANSFUSION VS TAKEN AND RECORDED. WILL CONTINUE TO MONITOR.
--- NOTE | 2020-12-06 19:05 | NUR ---
RN NOTE Patient Received. Patient is noted in bed, awake, alert and oriented x4. Breathing is even and non labored continues on 2L via NC with no signs of acute distress or shortness of breath. Patient is noted with SANTI midline noted to be patent and intact. BLE noted with edema +4. Dressing to RLE noted in place with no bleeding or drainage noted. Mckenzie catheter is intact, patent, with no sedimentation noted. HD site is noted to RU chest wall. Safety precautions in place with bed noted in lowest position and locked. Call light within reach. All needs attended to promptly. Will continue plan of care as ordered.
--- NOTE | 2020-12-06 19:34 | NUR ---
WASTEWATER PROCESS ENGINEER CLOSING NOTES Patient is in bed, awake and verbally responsive. alert and oriented x4, able to make needs known. Breathing is even and unlabored, continues on 2L O2 via NC. On tele monitoring, w/ reading of SR, hr in the mid 70's-80's, no cardiac distress noted. SANTI midline patent and intact; HD site R chest wall, dressing c/d/i. Mckenzie catheter is in place, draining urine of yellow color, no hematuria noted. S/P BT, administered 1PRBC, no transfusion reaction noted. Patient w/ standing order of Golytely, currently at bedside, informed patient to drink in the afternoon until tomorrow. Patient aware of procedure and will sign consent tomorrow. With standing order of clear liquids tonight until breakfast and NPO at lunch on 12/07/2020. Due meds given today. Safety precautions maintained: bed locked and on lowest position, sr up x2, call light within reach. Will continue to monitor.
[2020-12-06] MEDS: CEFTRIAXONE 2 G in IV D5W 100 ML IV SCH (19:46)
[2020-12-07] VITALS: BP 128/72
[2020-12-07 04:00] VITALS: BP 133/72
[2020-12-07 06:53] LABS: BASOPHILS # (AUTO) 0.1 /CMM (0.0-0.2); BASOPHILS % (AUTO) 0.6 % (0.0-2.0); EOSINOPHILS % (AUTO) 3.6 % (0.0-6.0); HEMATOCRIT 26 % (33-45); HEMOGLOBIN 8.3 g/dL (11.5-14.8); LYMPHOCYTES # (AUTO) 0.5 /CMM (0.8-4.8); MEAN CORPUSCULAR HGB CONC 32 g/dl (31.0-36.0); MEAN CORPUSCULAR VOLUME 91 fL (82-100); MONOCYTES # (AUTO) 1.5 /CMM (0.1-1.30); MONOCYTES % (AUTO) 12.1 % (2.0-12.0); NEUTROPHILS # (AUTO) 9.9 /CMM (1.8-8.9); NEUTROPHILS % (AUTO) 79.7 % (43.0-81.0); PLATELET COUNT (AUTO) 264 /CMM (150-450); RED BLOOD CELL COUNT(AUTO) 2.88 MIL/uL (4.0-5.2); WHITE BLOOD COUNT (AUTO) 12.4 K/uL (4.3-11.0)
[2020-12-07 07:20] LABS: CALCIUM, SERUM 8.7 mg/dL (8.5-10.1); CREATININE 6.5 mg/dL (0.6-1.3); MAGNESIUM 2.1 mg/dL (1.8-2.4); PHOSPHORUS 7.3 mg/dL (2.5-4.9); POTASSIUM 3.9 mmol/L (3.5-5.1)
--- NOTE | 2020-12-07 07:36 | NUR ---
RN NOTE Patient is noted in bed, awake, alert and oriented x4. Breathing is even and non labored continues on 2L via NC with no signs of acute distress or shortness of breath. Patient is noted with SANTI midline noted to be patent and intact. BLE noted with edema +4. Dressing to RLE noted in place with no bleeding or drainage noted. Mckenzie catheter is intact, patent, with no sedimentation noted. HD site is noted to RU chest wall. Patient is scheduled for colonoscopy today and is currently NPO. Safety precautions in place with bed noted in lowest position and locked. Call light within reach. All needs attended to promptly. Will endorse to continue plan of care as ordered.
--- NOTE | 2020-12-07 07:40 | NUR ---
MARBLE SUPERVISOR OPENING NOTES Patient is in bed resting, awake and verbally responsive. alert and oriented x4, able to make needs known. Breathing is even and unlabored, on 2L O2 via NC. SANTI midline patent and intact; HD site R chest wall, dressing c/d/i. Mckenzie catheter is in place, draining urine of yellow color. Golytely noted at bedside; encouraged patient to continue drinking prior to procedure later today. Patient stated that she could not tolerate drinking any more and that she can stop according to rn night RN. Explained importance of continuing to consume Golytely fluid and patient said she will try. Safety precautions in place: bed locked and on lowest position, sr up x2, call light within reach. Will continue to monitor.
[2020-12-07] MEDS: LEVOTHYROXINE SODIUM 75 MCG TABLET PO SCH (07:59)
[2020-12-07 08:00] VITALS: BP 129/66
[2020-12-07] MEDS: PANTOPRAZOLE 40 MG VIAL IV SCH ×2 (08:13→21:34)
[2020-12-07] MEDS: DAKINS QUARTER STRENGTH (0.125%) 480 ML BOTTLE TOP SCH (08:13)
[2020-12-07] MEDS: NYSTATIN TOP POWDER 15 GM BOTTLE TP SCH ×2 (08:13→16:33)
[2020-12-07] MEDS: CHLORHEXIDINE GLUCONATE 15 ML UDC MM SCH ×2 (08:13→16:32)
[2020-12-07] MEDS: CLOTRIMAZOLE 1% 15 GM TUBE TP SCH ×2 (08:13→16:32)
--- NOTE | 2020-12-07 09:30 | NUR ---
RN NOTES SPOKE W/ PATIENT AND INFORMED ABOUT COLONOSCOPY AND EGD PROCEDURE FOR TODAY AT 1600. CONSENT FORMS SIGNED BY PATIENT. CURRENTLY NPO FOR LUNCH PER MD ORDER.
[2020-12-07 16:00] VITALS: BP 117/61
[2020-12-07] MEDS ORDERED: VANCOMYCIN 1 GM in IV D5W 250 ML IV ONE (16:00)
--- NOTE | 2020-12-07 16:01 | NUR ---
RN NOTES SPOKE W/ ALCIDES, OR NURSE, AND INFORMED ABOUT PATIENT BEING UNABLE TO FINISH THE GOLYTELY; DR. CARDENAS AT THE OR AND MADE AWARE WELL. PER DR. CARDENAS, MAKE PATIENT CLEAR LIQUIDS FOR NOW AND WAIT UNTIL FURTHER NOTICE PROCEDURE MAY NOT BE DONE TODAY. PATIENT MADE AWARE.
--- NOTE | 2020-12-07 18:54 | NUR ---
JEWELRY FINISHER CLOSING NOTES Patient is in bed, awake and verbally responsive. alert and oriented x4, able to make needs known. Breathing is even and unlabored, continues on 2L O2 via NC. SANTI midline patent and intact; HD site R chest wall, dressing c/d/i. Vanco IV given today. Mckenzie catheter is in place, draining yellow-colored urine. On tele monitoring, reading of sr, no cardiac distress noted. Informed patient that she is currently on clear liquids until further notice from Dr. Clayton, and to continue drinking Golytely for now. Assisted w/ ADLs as tolerated. Safety precautions maintained: bed locked and on lowest position, sr up x2, call light within reach. Will endorse to risk control field representative RN for liana.
--- NOTE | 2020-12-07 19:30 | NUR ---
RN NOTE PATIENT IS DIALYZING, AWAKE, A & O X 3. PER NURSE WHO IS DIALYZING THE PATIENT THAT HD WILL FINISH AROUND 9PM THEN PATIENT'S DUE MEDICINES COULD BE ADMINISTERED. WILL CONTINUE TO MONITOR THE PATIENT.
[2020-12-07 20:00] VITALS: BP 124/64
[2020-12-07] MEDS: CEFTRIAXONE 2 G in IV D5W 100 ML IV SCH (21:34)
--- NOTE | 2020-12-07 23:17 | NUR ---
RN NOTE PATIENT IS CONTINUING TO DRINK GOLYTELY AT NIGHT & TOLERATING WELL AT THIS TIME.
[2020-12-08] VITALS: BP 134/65
[2020-12-08 04:00] VITALS: BP 134/65
[2020-12-08] MEDS: VANCOMYCIN POST DIALYSIS 500MG IV PRN ×4 (04:53→21:30)
--- NOTE | 2020-12-08 04:53 | NUR ---
RN NOTE PATIENT WAS DIALYZED ON 12/07/2020 IN THE EVENING, VANCOMYCIN IV ADMINISTERED AT THIS TIME ORDERED.
[2020-12-08 06:27] LABS: BASOPHILS # (AUTO) 0.1 /CMM (0.0-0.2); BASOPHILS % (AUTO) 0.7 % (0.0-2.0); EOSINOPHILS % (AUTO) 3.5 % (0.0-6.0); HEMATOCRIT 22 % (33-45); HEMOGLOBIN 7.1 g/dL (11.5-14.8); LYMPHOCYTES # (AUTO) 0.4 /CMM (0.8-4.8); LYMPHOCYTES % (AUTO) 3.7 % (20.0-44.0); MEAN CORPUSCULAR HGB CONC 32 g/dl (31.0-36.0); MEAN CORPUSCULAR VOLUME 91 fL (82-100); MONOCYTES # (AUTO) 1.4 /CMM (0.1-1.30); MONOCYTES % (AUTO) 11.6 % (2.0-12.0); NEUTROPHILS # (AUTO) 9.6 /CMM (1.8-8.9); NEUTROPHILS % (AUTO) 80.5 % (43.0-81.0); PLATELET COUNT (AUTO) 253 /CMM (150-450); RED BLOOD CELL COUNT(AUTO) 2.44 MIL/uL (4.0-5.2); WHITE BLOOD COUNT (AUTO) 11.9 K/uL (4.3-11.0)
--- NOTE | 2020-12-08 07:00 | NUR ---
LINEN ROOM HOUSEPERSON OPENING NOTES RECEIVED PT AWAKE IN BED AT THIS TIME. AOX4. NO SOB NOTED, NO S/S OF ANY APPARENT DISTRESS NOTED. NO C/O PAIN NOTED AT THIS TIME. RESPIRATIONS ARE EVEN AND UNLABORED WITH EQUAL RISE AND FALL IN CHEST. PT ON OXYGEN @ 2LP VIA NC. PT ON EXTERNAL FIELD APPRAISER READING SR 82. SANTI MIDLINE, INTACT, PATENT AND FLUSHING WELL. WADE CATHETER IN PLACE DRAINING TO GRAVITY CLEAR YELLOW COLOR URINE OUTPUT. ASPIRATION, AND SAFETY PRECAUTION IN PLACE AND MAINTAINED AT ALL TIMES. BED IN LOWEST LOCKED POSITION, HOB ELEVATED, SIDE RAILS UP X 2, CALL LIGHT AND TABLE WITHIN REACH. WILL CONTINUE WITH PLAN OF CARE.
[2020-12-08 07:03] LABS: CALCIUM, SERUM 8.6 mg/dL (8.5-10.1); CREATININE 4.8 mg/dL (0.6-1.3); MAGNESIUM 1.9 mg/dL (1.8-2.4); PHOSPHORUS 5.3 mg/dL (2.5-4.9); POTASSIUM 4.1 mmol/L (3.5-5.1)
[2020-12-08 08:00] VITALS: BP 129/63
[2020-12-08] MEDS: CHLORHEXIDINE GLUCONATE 15 ML UDC MM SCH ×2 (08:27→17:09)
[2020-12-08] MEDS: PANTOPRAZOLE 40 MG VIAL IV SCH (08:27)
[2020-12-08] MEDS: LEVOTHYROXINE SODIUM 75 MCG TABLET PO SCH (08:27)
[2020-12-08] MEDS: DAKINS QUARTER STRENGTH (0.125%) 480 ML BOTTLE TOP SCH (09:12)
[2020-12-08] MEDS: CLOTRIMAZOLE 1% 15 GM TUBE TP SCH ×2 (09:13→17:09)
[2020-12-08] MEDS: NYSTATIN TOP POWDER 15 GM BOTTLE TP SCH ×2 (09:14→17:09)
--- NOTE | 2020-12-08 10:28 | NUR ---
WOUND CARE CONSULT: PT SEEN FOR SKIN ASSESSMENT AND NOTED TO HAVE INTACT SKIN TO BUTTOCKS, PERINEUM AND ABDOMINAL/GROIN FOLDS WITH SOME SKIN DISCOLORATION NOTED. RT LEG HAS DRESSING WHICH IS DRY AND INTACT. DEFER TO PODIATRY FOR RT LOWER LEG. RECOMMENDATIONS MADE FOR SKIN PROTECTION. DISCUSSED WITH NURSING STAFF. WILL SEE PRN. DICK IN AGREEMENT WITH PLAN OF CARE.
--- NOTE | 2020-12-08 11:45 | NUR ---
PT TRANSPORTED BY BED TO OR FOR COLONOSCOPY AT THIS TIME WITH OXYGEN IN PLACE. WILL CONTINUE WITH PLAN OF CARE
[2020-12-08] MEDS ORDERED: SIMETHICONE SUSP 40 MG/0.6 ML BOTTLE ONE (12:11)
[2020-12-08 13:00] VITALS: BP 123/53
--- NOTE | 2020-12-08 13:12 | NUR ---
PT TRANSPORTED BY BED TO TO ROOM FROM COLONOSCOPY AT THIS TIME WITH OXYGEN IN PLACE. WILL CONTINUE WITH PLAN OF CARE
--- NOTE | 2020-12-08 13:20 | NUR ---
PER DOCTOR THERESA, ADVANCE PT ON REGULAR DIET, ORDERS CARRIED OUT. WILL CONTINUE TO MONITOR
--- NOTE | 2020-12-08 15:09 | NUR ---
This SW received a call from patient's friend Marleny Kumar [phone]. Marleny wanted more information for the patient regarding DPOA. JACINTO informed Marleny this SW could provide a general DPOA document however patient would have to notarize these documents once patient is discharged from [facility] as notary's at this time are not allowed to enter [facility] facility per COVID-19 protocols. Marleny understood and had questions on how to be added to patient's list of person to notify. JACINTO informed Marleny that all patient's need to provide consent for friends to be notified regarding patient condition. Marleny also understood and stated she would talk to the patient to provide consent. Plan: SW to follow-up with the patient regarding person to notify information. SW remains available for all needs regarding this patient.
[2020-12-08 16:00] VITALS: BP 122/60
--- NOTE | 2020-12-08 16:00 | NUR ---
MIDLINE DRESSING PERFORMED AT THIS TIME. WILL CONTINUE TO MONITOR
--- NOTE | 2020-12-08 19:00 | NUR ---
RN CLOSING NOTES PT AWAKE IN BED AT THIS TIME. PT REMAINED STABLE THROUGHOUT SHIFT. ALL CARE, NEED, MEDICATIONS AND TREATMENT ADMINISTERED ANTICIPATED PER ORDER. PT KEPT CLEAN AND DRY. PT ONGOING HD AT THIS TIME. WOUND TREATMENT ADMINISTERED PER ORDER. WADE CATHETER CARE PROVIDED. ASPIRATION AND SAFETY PRECAUTION IN PLACE AND MAINTAINED AT ALL TIMES. BED IN LOWEST LOCKED POSITION, HOB ELEVATED, SIDE RAILS UP X 2, CALL LIGHT AND TABLE WITHIN REACH. ENDORSED TO CANARY BREEDER NURSE FOR MIKE
--- NOTE | 2020-12-08 19:05 | NUR ---
RN Note Patient Received. Patient is noted in bed, awake, alert and oriented x4. Currently receiving HD. Breathing even and non labored on 2L via NC. No acute distress or shortness of breath. Patient continues on tele monitor and noted to be NSR. Mckenzie catheter intact and draining clear yellow urine. SANTI midline noted to be patent and intact. RIJ Juan Diego cath noted to be patent and intact. Safety precautions in place with bed in lowest position and locked. All needs attended to promptly. Call light within reach. Will continue plan of care as ordered.
[2020-12-08 20:00] VITALS: BP 104/54
[2020-12-08] MEDS: CEFTRIAXONE 2 G in IV D5W 100 ML IV SCH (20:35)
[2020-12-08] MEDS: PANTOPRAZOLE 40 MG TABLET.DR PO SCH (20:36)
[2020-12-08] MEDS: ACETAMINOPHEN 325 MG TABLET PO PRN (23:51)
[2020-12-09] VITALS: BP 122/47
[2020-12-09 04:00] VITALS: BP 123/63
[2020-12-09 06:42] LABS: BASOPHILS # (AUTO) 0.1 /CMM (0.0-0.2); BASOPHILS % (AUTO) 0.7 % (0.0-2.0); HEMATOCRIT 22 % (33-45); HEMOGLOBIN 7.1 g/dL (11.5-14.8); LYMPHOCYTES # (AUTO) 0.7 /CMM (0.8-4.8); LYMPHOCYTES % (AUTO) 6.5 % (20.0-44.0); MEAN CORPUSCULAR HGB CONC 33 g/dl (31.0-36.0); MEAN CORPUSCULAR VOLUME 91 fL (82-100); MONOCYTES # (AUTO) 1.4 /CMM (0.1-1.30); MONOCYTES % (AUTO) 13.5 % (2.0-12.0); NEUTROPHILS # (AUTO) 7.8 /CMM (1.8-8.9); NEUTROPHILS % (AUTO) 74.3 % (43.0-81.0); PLATELET COUNT (AUTO) 247 /CMM (150-450); RED BLOOD CELL COUNT(AUTO) 2.36 MIL/uL (4.0-5.2); WHITE BLOOD COUNT (AUTO) 10.5 K/uL (4.3-11.0)
[2020-12-09 07:04] LABS: CALCIUM, SERUM 8.3 mg/dL (8.5-10.1); MAGNESIUM 2.1 mg/dL (1.8-2.4); PHOSPHORUS 4.5 mg/dL (2.5-4.9); POTASSIUM 3.8 mmol/L (3.5-5.1)
--- NOTE | 2020-12-09 07:30 | NUR ---
RN Note Patient is noted in bed, awake, alert and oriented x4. Breathing even and non labored on 2L via NC. No acute distress or shortness of breath. Patient continues on tele monitor and noted to be NSR. Mckenzie catheter intact and draining clear yellow urine. SANTI midline noted to be patent and intact. RIJ Juan Diego cath noted to be patent and intact. Safety precautions in place with bed in lowest position and locked. All needs attended to promptly. Call light within reach. Will endorse to continue plan of care as ordered.
[2020-12-09] MEDS: LEVOTHYROXINE SODIUM 75 MCG TABLET PO SCH (07:34)
--- NOTE | 2020-12-09 07:36 | NUR ---
TELE/RN OPENING NOTES RECEIVED PATIENT ON BED AWAKE ALERT AND ORIENTED X4. PATIENT IS ON 2 L OXYGEN VIA NASAL CANNULA TOLERATING WELL. PATIENT IN NO APPARENT RESPIRATORY DISTRESS NOTED. NO COMPLAINED OF PAIN NOTED AT THIS TIME. TELE MONITOR READING SINUS RHYTHM 85 BPM. WILL CONTINUE TO MONITOR.
[2020-12-09 08:00] VITALS: BP 105/73
[2020-12-09] MEDS: PANTOPRAZOLE 40 MG TABLET.DR PO SCH (08:16)
[2020-12-09] MEDS: CHLORHEXIDINE GLUCONATE 15 ML UDC MM SCH ×2 (08:16→17:13)
[2020-12-09] MEDS: CLOTRIMAZOLE 1% 15 GM TUBE TP SCH ×2 (08:18→17:13)
[2020-12-09] MEDS: DAKINS QUARTER STRENGTH (0.125%) 480 ML BOTTLE TOP SCH (08:18)
[2020-12-09] MEDS: NYSTATIN TOP POWDER 15 GM BOTTLE TP SCH ×2 (08:20→17:13)
[2020-12-09 12:00] VITALS: BP 107/46
[2020-12-09 16:00] VITALS: BP 105/60
[2020-12-09] MEDS ORDERED: PANT40TA2 PO ×2 (16:28→16:29)
[2020-12-09] MEDS ORDERED: CLOT15CR35 TP (16:28)
[2020-12-09] MEDS ORDERED: DOXY-226 PO (16:28)
[2020-12-09] MEDS ORDERED: NYST15PO4 TP (16:28)
[2020-12-09] MEDS ORDERED: LIDO5CRE TP (16:28)
[2020-12-09] MEDS ORDERED: SODI473S8 TOP (16:28)
[2020-12-09] MEDS ORDERED: LIDO35.4 TP (16:28)
[2020-12-09] MEDS ORDERED: CHLO473M2 MM (16:28)
[2020-12-09] MEDS ORDERED: LEVO75TA PO (16:28)
[2020-12-09] MEDS ORDERED: HYDR-3972 PO (16:28)
--- NOTE | 2020-12-09 18:29 | NUR ---
TELE/RN CLOSING NOTES PATIENT IS ON BED. ALERT AND ORIENTED X4. PATIENT IS ON 2L OXYGEN VIA NASAL CANNULA SATURATION 94%. PATIENT IN NO APPARENT RESPIRATORY DISTRESS NOTED. NO COMPLAINED OF PAIN AT THIS TIME. IV ACCESS AT RIGHT UPPER MIDLINE PATENT AND INTACT. SEEN AND EXAMINED BY MD WITH ORDERS MADE AND CARRIED OUT. ALL DUE MEDICATIONS WAS GIVEN. SAFETY PRECAUTIONS WAS IN IN PLACED. SIDERAILS UP X2. BED IN LOWEST POSITION AND LOCKED. CALL LIGHT WITHIN REACH. PATIENT IS FOR DISCHARGED TODAY. PATIENT REFUSED TO TAKE DISCHARGED SKIN/WOUND PHOTO, EXPLAINED THE RISK AND BENEFITS PATIENT IS STILL REFUSING. WILL ENDORSED TO REFLEXOLOGIST FOR MIKE.
[2020-12-09 20:21] VITALS: BP 105/64
--- NOTE | 2020-12-09 22:08 | NUR ---
RIGHT UPPER ARM MIDLINE REMOVED, TIP IS INTACT, NO BLEEDING NOTED. PT REFUSED TO HAVE SKIN ASSESSMENT. WADE CATHETER INTACT, DRAINING TO A CLEAR YELLOW URINE OUTPUT, D/C WITH THE WADE CATHETER, ACCORDING TO KENNY GAINES FROM [place] [place] SAID THAT TO KEEP THE WADE. ENDORSED TO THE AMBULANCE PERSONNEL. D/C PACKET PREPARED AND PRINTED BY KENNY SANCHEZ AND GIVEN TO THE AMBULANCE. PER KENNY ARAUJO SHE ALREADY GAVE REPORTS TO THE SNF KENNY GAINES. PT IS ALREADY PICKED UP BY THE AMBULANCE.
== END 2020-12-09 22:15 | DRG 383 ==
LOC: ER 15:02 → TRANSITION 22:26 → MED 11-24 11:11 → TELE 11-24 11:53
PROVIDERS: ADMIT Nurse Practitioner Acute Care; ATTEND Registered Nurse
PROC: 30233N1 Transfusion of Nonautologous Red Blood Cells into Peripheral Vein, Percutaneous Approach (ICD-10-PCS; 2020-11-24)
PROC: 06HY33Z Insertion of Infusion Device into Lower Vein, Percutaneous Approach (ICD-10-PCS; principal; 2020-11-26)
PROC: 5A1D70Z Performance of Urinary Filtration, Intermittent, Less than 6 Hours Per Day (ICD-10-PCS; 2020-11-26)
PROC: 05H533Z Insertion of Infusion Device into Right Subclavian Vein, Percutaneous Approach (ICD-10-PCS; 2020-11-27)
PROC: B546ZZA Ultrasonography of Right Subclavian Vein, Guidance (ICD-10-PCS; 2020-11-27)
PROC: 0JH63XZ Insertion of Tunneled Vascular Access Device into Chest Subcutaneous Tissue and Fascia, Percutaneous Approach (ICD-10-PCS; 2020-12-02)
PROC: 06H033Z Insertion of Infusion Device into Inferior Vena Cava, Percutaneous Approach (ICD-10-PCS; 2020-12-02)
PROC: B519YZA Fluoroscopy of Inferior Vena Cava using Other Contrast, Guidance (ICD-10-PCS; 2020-12-02)
PROC: 0DB68ZX Excision of Stomach, Via Natural or Artificial Opening Endoscopic, Diagnostic (ICD-10-PCS; 2020-12-05)
PROC: 0DJD8ZZ Inspection of Lower Intestinal Tract, Via Natural or Artificial Opening Endoscopic (ICD-10-PCS; 2020-12-08)
DX: L03.115 Cellulitis of right lower limb (principal); N17.0 Acute kidney failure with tubular necrosis; E43 Unspecified severe protein-calorie malnutrition; L03.116 Cellulitis of left lower limb; N18.6 End stage renal disease; B35.3 Tinea pedis; B35.1 Tinea unguium; E03.9 Hypothyroidism, unspecified; D63.1 Anemia in chronic kidney disease; E87.2 Acidosis; E83.39 Other disorders of phosphorus metabolism; K64.8 Other hemorrhoids; Z88.2 Allergy status to sulfonamides; Z20.822 Contact with and (suspected) exposure to COVID-19; N39.0 Urinary tract infection, site not specified; B37.0 Candidal stomatitis; I89.0 Lymphedema, not elsewhere classified; E88.09 Other disorders of plasma-protein metabolism, not elsewhere classified; E66.01 Morbid (severe) obesity due to excess calories; Z68.43 Body mass index [BMI] 50.0-59.9, adult; N03.9 Chronic nephritic syndrome with unspecified morphologic changes; K25.9 Gastric ulcer, unspecified as acute or chronic, without hemorrhage or perforation; K29.70 Gastritis, unspecified, without bleeding; S71.101A Unspecified open wound, right thigh, initial encounter; X58.XXXA Exposure to other specified factors, initial encounter; Y93.9 Activity, unspecified; Y92.89 Other specified places as the place of occurrence of the external cause; I50.9 Heart failure, unspecified; L97.818 Non-pressure chronic ulcer of other part of right lower leg with other specified severity
CPT/HCPCS: 36410; 36415; 71045-TC; 73700-TC; 76770-TC; 80048-TC; 80053-TC; 80061-TC; 80202-TC; 81001; 82040-TC; 82272-TC; 82550-TC; 82570-TC; 82962-TC; 83605-TC; 83735-TC; 83880; 83970; 84100-TC; 84155; 84155-TC; 84165; 84300-TC; 85025-TC; 85027-TC; 85610-TC; 85652-TC; 85730-TC; 86140-TC; 86225; 86235; 86704; 86706; 86803; 86850-TC; 87040-TC; 87070-TC; 87081-TC; 87086-TC; 87186-TC; 87340; 88305-TC; 88313-TC; 88342; 90935-TC; 93307-TC; 97112-TC; 97530-TC; A6253; A6403; C1750; C1751; C9113; G0378; J0696; J1644; J1885; J1940; J2405; J2704; J3010; J3370; J3490; J7030; J7040; J7050; J7060; P9016-BL

== ENCOUNTER 2020-12-20 14:46 | Inpatient (IN) | payer MEDICAID ==
[~2020-12-20] VITALS: Ht 167.6 cm; Wt 129.3 kg
[~2020-12-20 14:46] MED LIST: CHLO473M2 MM; CLOT15CR35 TP; DOXY-226 PO; HYDR-3972 PO; LEVO150T8 PO; LEVO75TA PO; LIDO35.4 TP; LIDO5CRE TP; NYST15PO4 TP; PANT40TA2 PO; SODI473S8 TOP
--- NOTE | 2020-12-20 15:00 | NUR ---
BIB [facility] FOR LOW H&H. PT IS COVID POSITIVE. PATIENT A/OX4, BREATHING EVEN AND UNLABORED, NO SOB NOTED. ATTACHED TO THE LOOM OVERHAULER. NEEDS ATTENDED.
[2020-12-20 16:37] LABS: BASOPHILS # (AUTO) 0.1 /CMM (0.0-0.2); EOSINOPHILS % (AUTO) 3.2 % (0.0-6.0); LYMPHOCYTES # (AUTO) 0.8 /CMM (0.8-4.8); LYMPHOCYTES % (AUTO) 9.1 % (20.0-44.0); MEAN CORPUSCULAR HGB CONC 33 g/dl (31.0-36.0); MEAN CORPUSCULAR VOLUME 91 fL (82-100); MONOCYTES # (AUTO) 1.2 /CMM (0.1-1.30); MONOCYTES % (AUTO) 13.3 % (2.0-12.0); NEUTROPHILS # (AUTO) 6.4 /CMM (1.8-8.9); NEUTROPHILS % (AUTO) 73.4 % (43.0-81.0); PLATELET COUNT (AUTO) 251 /CMM (150-450); RED BLOOD CELL COUNT(AUTO) 1.99 MIL/uL (4.0-5.2); WHITE BLOOD COUNT (AUTO) 8.7 K/uL (4.3-11.0)
[2020-12-20 16:42] LABS: HEMATOCRIT 18 % (33-45); HEMOGLOBIN 5.9 g/dL (11.5-14.8)
[2020-12-20 16:47] LABS: CALCIUM, SERUM 8.3 mg/dL (8.5-10.1); CREATININE 5.6 mg/dL (0.6-1.3); POTASSIUM 4.2 mmol/L (3.5-5.1)
--- NOTE | 2020-12-20 16:58 | NUR ---
BLOOD TRANSFUSION CONSENTS SIGNED BY THE PATIENT.
[2020-12-20 17:40] LABS: EOSINOPHILS % (MANUAL) 3 % (0-4); LYMPHOCYTES % (MANUAL) 12 % (16-48); MONOCYTES % (MANUAL) 6 % (0-11.0); NEUTROPHILS % (MANUAL) 79 (42-76)
--- NOTE | 2020-12-20 17:48 | NUR ---
PAGED [facility].
--- NOTE | 2020-12-20 18:02 | NUR ---
COVID PCR SENT TO LAB.
--- NOTE | 2020-12-20 18:40 | NUR ---
BLOOD TRANSFUSION INITIATED, VITALS STABLE. WILL CONTINUE TO MONITOR.
--- NOTE | 2020-12-20 19:27 | NUR ---
PATIENT IS CONNECTED TO THE MUSIC COPYIST. AWOKEN FROM SLEEP. PATIENT IS AAOX4. NO SOB. BREATHING EVENLY AND UNLABORED ON ROOM AIR AT 95%. WILL CONTINUE TO MONITOR CLOSELY. PRBC CURRENTLY INFUSING WITH NO TRANSFUSION REACTION. CALL LIGHT WITHIN REACH.
[2020-12-20] MEDS ORDERED: MORPHINE SULFATE INJ 2 MG/ML DISP.SYRIN IV PRN (20:30)
[2020-12-20] MEDS ORDERED: Z GUARD REMEDY 2 OZ OINT TP PRN (20:30)
[2020-12-20] MEDS ORDERED: ONDANSETRON HCL/PF 4 MG/2 ML VIAL IVP PRN (20:30)
[2020-12-20] MEDS ORDERED: MAG HYDROX/AL HYDROX/SIMETH 30 ML UDC PO PRN (20:30)
[2020-12-20] MEDS ORDERED: MAGNESIUM HYDROXIDE 30 ML UDC PO PRN (20:30)
[2020-12-20] MEDS ORDERED: HYDROCODONE/APAP 5/325MG TABLET PO PRN (20:30)
[2020-12-20] MEDS ORDERED: MEROPENEM 500 MG in IV NS 0.9% 50 ML IV ONE (21:00)
[2020-12-20] MEDS ORDERED: MEROPENEM 500 MG VIAL IV ONE (21:38)
[2020-12-20] MEDS ORDERED: VANCOMYCIN 2 GM in IV D5W 500 ML IV ONE (22:00)
--- NOTE | 2020-12-20 22:02 | NUR ---
REPORT GIVEN TO RE COX FOR MIKE.
[2020-12-20 22:25] VITALS: BP 134/69
--- NOTE | 2020-12-20 22:25 | NUR ---
RN NOTE PT ARRIVED TO THE UNIT VIA GURNEY, PT IS A/A/O X4, ON ROOM AIR SATING ABOVE 95%, PT HAS UNLABORED BREATHING, PT ON TELE MONITOR SHOWING SR WITH HR IN 80s SAFETY MEASURES IN PLACE.
[2020-12-20] MEDS ORDERED: VANCOMYCIN 1 GM VIAL ONE (23:04)
[2020-12-20] MEDS: ACETAMINOPHEN 325 MG TABLET PO PRN (23:12)
[2020-12-21] VITALS (15 sets, daily range): BP systolic 105–146; BP diastolic 55–77
[2020-12-21 00:15] LABS: HEMOGLOBIN 6.6 g/dL (11.5-14.8)
--- NOTE | 2020-12-21 00:22 | NUR ---
CASHIERS BUSSERS FOOD RUNNERS NOTE RECEIVED A CALL FOR CTITICAL LAB BY BRADY. HGB 6.6 HCT 20. INFORMED PRIMARY RN AND EVP [place] MARY JANE CARDENAS. ALSO INFORMED THAT IS WAS POST 1 UNIT PRBC TRANFUSION. RECEIVED ORDERS FOR TRANSFUSE ONE UNIT PRBC AND RECHECK H/H 4 HOURS POST TRANSFUSION. WILL ENTER ORDERS AND INFORM PRIMARY RN RE.
--- NOTE | 2020-12-21 01:48 | NUR ---
receptionist/telephone operator note called blood bank to ask about 1 unit prbc. they are currently cross matching the blood. will call primary RN Alicia once blood is available. informed Alicia [facility].
[2020-12-21] MEDS: ACETAMINOPHEN 325 MG TABLET PO PRN ×2 (06:17→21:57)
[2020-12-21] MEDS ORDERED: VANCOMYCIN 500 MG in IV D5W 100 ML IV PRN (06:30)
--- NOTE | 2020-12-21 07:20 | NUR ---
RN NOTE PT REMAINED STABLE DURING MY SHIFT, REPORT GIVEN TO INCOMING SHIFT FOR MIKE.
--- NOTE | 2020-12-21 07:59 | NUR ---
PT RECEIVED IN BED ALERT AND ORIENTED X 4. PT ON ROOM AIR O2 SAT99% NO RESPIRATORY DISTRESS OR SOB. PT BEDREST. PT ON RENAL DIET. PT HAS RIGHT WRIST 20G JUST FINISHED 1 U PRBC FROM PREVIOUS SHIFT, NOW S/P 2U PRBC SINCE ADMISSION. ALL SAFETY MEASURES IN PLACE. WILL CONTINUE TO MONITOR CLOSELY
[2020-12-21] MEDS: MEROPENEM 500 MG in IV NS 0.9% 50 ML IV SCH ×2 (08:38→20:20)
[2020-12-21] MEDS: LEVOTHYROXINE SODIUM 75 MCG TABLET PO SCH (08:38)
[2020-12-21 12:08] LABS: BASOPHILS # (AUTO) 0.1 /CMM (0.0-0.2); BASOPHILS % (AUTO) 0.7 % (0.0-2.0); EOSINOPHILS % (AUTO) 5.2 % (0.0-6.0); LYMPHOCYTES # (AUTO) 0.7 /CMM (0.8-4.8); LYMPHOCYTES % (AUTO) 7.7 % (20.0-44.0); MEAN CORPUSCULAR HGB CONC 33 g/dl (31.0-36.0); MEAN CORPUSCULAR VOLUME 89 fL (82-100); MONOCYTES # (AUTO) 0.9 /CMM (0.1-1.30); MONOCYTES % (AUTO) 10.4 % (2.0-12.0); NEUTROPHILS # (AUTO) 6.8 /CMM (1.8-8.9); PLATELET COUNT (AUTO) 223 /CMM (150-450); RED BLOOD CELL COUNT(AUTO) 2.26 MIL/uL (4.0-5.2); WHITE BLOOD COUNT (AUTO) 8.9 K/uL (4.3-11.0)
[2020-12-21 12:19] LABS: HEMATOCRIT 20 % (33-45); HEMOGLOBIN 6.6 g/dL (11.5-14.8)
[2020-12-21 12:27] LABS: ALBUMIN 1.6 g/dL (3.4-5.0); BILIRUBIN,TOTAL 0.4 mg/dL (0.2-1.0); CALCIUM, SERUM 8.1 mg/dL (8.5-10.1); PHOSPHORUS 6.2 mg/dL (2.5-4.9); POTASSIUM 4.1 mmol/L (3.5-5.1); TOTAL PROTEIN, SERUM 7.4 g/dL (6.4-8.2)
--- NOTE | 2020-12-21 12:30 | NUR ---
HGB 6.6 HCT 20 notified to Gregorio Muller re; above waiting for returning call back
--- NOTE | 2020-12-21 12:41 | NUR ---
stated no more transfusion and no more q6hrs h&h
--- NOTE | 2020-12-21 16:57 | NUR ---
GANESH SAUCEDO REPORTS 2L OUTPUT FROM PATIENT
--- NOTE | 2020-12-21 19:30 | NUR ---
RN OPENING NOTE RECEIVED PATIENT IN BED RESTING ALERT ORIENTED X4 VERBALLY RESPONSIVE ABLE TO MAKE NEEDS KNOWN,ON ROOM O2:95% ON TELE MONITORING,IV SITE IS ON RIGHT AC INTACT PATENT AND PERM-CATH ON RIGHT FEMORAL AND RIGHT UPPER CHEST DRESSING INTACT,WADE CATHETER IN PLACE,URINE DRAINING YELLOW/CLEAR,CALL LIGHT WITHIN REACH,BED IN LOW POSITION AND LOCKED,SAFETY MEASURE IMPLEMENT CONTINUE TO MONITOR.
--- NOTE | 2020-12-21 19:35 | NUR ---
PT REMAINS IN BED ON RA, NO RESPIRATORY DISTRESS. WOUND CARE COMPLETED FOR RIGHT LOWER LEG. PT OUTPUT FROM WADE 1100, CLEAR YELLOW URINE. PT CONSUMED APPROXIMATELY 75-90% OF MEALS. PT HAD 1 BM THIS SHIFT FORMED HARD STOOL. PT IV INTACT NO SIGNS OF INFECTION OR INFILTRATION. ALL SAFETY MEASURES IN PLACE. REPORT GIVEN TO MARIELLA FOR MIKE
[2020-12-22] VITALS: BP 111/68
[2020-12-22 04:00] VITALS: BP 121/72
--- NOTE | 2020-12-22 06:40 | NUR ---
RN CLOSING NOTE PATIENT REMAINS ON ALERT ORIENTED X4 VERBALLY RESPONSIVE ON ROOM AIR O2:94% NO SOB NOT ACUTE DISTRESS NOTED,IV SITE IS ON RIGHT AC INTACT PATENT AND RIGHT FEMORAL PERM-CATH FOR DIALYSIS AND RIGHT UPPER CHEST PERM-CATH DRESSING INTACT,ALL DUE MEDS GIVEN MD ORDERED TREATMENT FOR BLE DONE, KEPT CLEAN AND DRY ALL THE TIME,KEPT COMFORTABLE,ENDORSE NEXT COMING SHIFT FOR CONTINUATION OF CARE.
[2020-12-22 07:33] LABS: BASOPHILS % (AUTO) 0.7 % (0.0-2.0); EOSINOPHILS % (AUTO) 7.9 % (0.0-6.0); HEMATOCRIT 21 % (33-45); LYMPHOCYTES # (AUTO) 0.7 /CMM (0.8-4.8); LYMPHOCYTES % (AUTO) 10.1 % (20.0-44.0); MEAN CORPUSCULAR HGB CONC 33 g/dl (31.0-36.0); MEAN CORPUSCULAR VOLUME 90 fL (82-100); MONOCYTES # (AUTO) 0.6 /CMM (0.1-1.30); NEUTROPHILS # (AUTO) 5.2 /CMM (1.8-8.9); NEUTROPHILS % (AUTO) 72.3 % (43.0-81.0); PLATELET COUNT (AUTO) 199 /CMM (150-450); RED BLOOD CELL COUNT(AUTO) 2.32 MIL/uL (4.0-5.2); WHITE BLOOD COUNT (AUTO) 7.1 K/uL (4.3-11.0)
[2020-12-22] MEDS: LEVOTHYROXINE SODIUM 75 MCG TABLET PO SCH (07:40)
[2020-12-22 07:42] LABS: HEMOGLOBIN 6.9 g/dL (11.5-14.8)
[2020-12-22 07:51] LABS: CALCIUM, SERUM 8.5 mg/dL (8.5-10.1); CREATININE 5.3 mg/dL (0.6-1.3)
[2020-12-22 08:00] VITALS: BP 137/76
--- NOTE | 2020-12-22 08:00 | NUR ---
RN Opening note Received patient in bed, able to responds all stimuli, Pt does no c/o pain or distress. Skin is warm to touch keep clean/dry, intact IV site on right AC g 22, respiratory even and unlabored on room air O2sat 94%. Kept locked bed with elevated HOB for aspiration precaution and ensure airway and lowest bed foe safety. Call light within reach, will continue to monitor.
[2020-12-22] MEDS: MEROPENEM 500 MG in IV NS 0.9% 50 ML IV SCH (08:46)
--- NOTE | 2020-12-22 11:00 | NUR ---
WOUND CARE CONSULT: REVIEWED CHART, NURSING DOCUMENTATION AND PHOTOS WHICH INDICATE WOUND TO RT LOWER LEG, PRESENT ON ADMISSION WELL LOWER LEG SKIN DISCOLORATION. DR CHAIDEZ NOTIFIED OF DPM CONSULT REQUEST. RECOMMENDATIONS MADE FOR SKIN PROTECTION. DISCUSSED WITH NURSING STAFF. PT IS ON [facility] LOW AIRLOSS BED. MD IN AGREEMENT WITH PLAN OF CARE.
--- NOTE | 2020-12-22 11:30 | NUR ---
Patient noticed Hgb level 6.9 this morning, made aware, no new order at this time.
[2020-12-22 12:00] VITALS: BP 144/76
[2020-12-22] MEDS: ACETAMINOPHEN 325 MG TABLET PO PRN (13:41)
[2020-12-22 15:34] LABS: BILIRUBIN,URINE NEGATIVE (NEGATIVE); COLOR,URINE YELLOW (YELLOW); LEUKOCYTE ESTERASE ,URINE NEGATIVE (NEGATIVE); NITRITE, URINE NEGATIVE (NEGATIVE); PH,URINE 8.5 (5.0-8.0); PROTEIN,URINE 100 mg/dl (NEGATIVE); UGLUCOSE 100 MG/DL mg/dL (NEGATIVE); UROBILINOGEN,URINE 0.2 EU/dL (0.2)
[2020-12-22 15:43] LABS: BACTERIA,URINE Few /HPF (None Seen); COARSE GRANULAR CASTS,URINE Few /LPF (None Seen); HYALINE CASTS, URINE Few /LPF (None Seen); RBC,URINE 21-50 /HPF (0-2); SQUAMOUS EPITHELIAL CELL,UR Moderate /HPF (None Seen); WBC,URINE 0-2 /HPF (0-3)
[2020-12-22 16:00] VITALS: BP 129/74
--- NOTE | 2020-12-22 16:33 | NUR ---
Patient discharge to [facility], given report Kwesi CONCEPCION.
--- NOTE | 2020-12-22 18:25 | NUR ---
RN closing Patient in bed resting, does no complains distress or discomfort. Skin is warm to touch, keep clean/dry, wound dressing changed, patient discharge to [facility] and removed IV line, no active bleeding observed. Respiratory even and unlabored on room air O2sat 94%. Kept elevated HOB for ensure air way and aspiration precaution and lowest bed position for safety. Call light within reach, will endorse night worker.
== END 2020-12-22 19:23 | DRG 194 ==
LOC: ER 14:48 → TELE1 20:36
PROVIDERS: ADMIT Nurse Practitioner Acute Care
PROC: 30233N1 Transfusion of Nonautologous Red Blood Cells into Peripheral Vein, Percutaneous Approach (ICD-10-PCS; principal; 2020-12-20)
PROC: 5A1D70Z Performance of Urinary Filtration, Intermittent, Less than 6 Hours Per Day (ICD-10-PCS; 2020-12-21)
DX: I13.2 Hypertensive heart and chronic kidney disease with heart failure and with stage 5 chronic kidney disease, or end stage renal disease (principal); U07.1 COVID-19; N18.6 End stage renal disease; L03.115 Cellulitis of right lower limb; L03.116 Cellulitis of left lower limb; K64.8 Other hemorrhoids; E03.9 Hypothyroidism, unspecified; I50.9 Heart failure, unspecified; I89.0 Lymphedema, not elsewhere classified; Z87.11 Personal history of peptic ulcer disease; J12.82 Pneumonia due to coronavirus disease 2019; B37.0 Candidal stomatitis; Z99.2 Dependence on renal dialysis; M62.81 Muscle weakness (generalized); D68.69 Other thrombophilia; D50.0 Iron deficiency anemia secondary to blood loss (chronic); Z88.2 Allergy status to sulfonamides; D63.1 Anemia in chronic kidney disease; R91.8 Other nonspecific abnormal finding of lung field
CPT/HCPCS: 36415; 71045-TC; 80048-TC; 80053-TC; 80202-TC; 81001; 83735-TC; 84100-TC; 85025-TC; 85027-TC; 85730-TC; 86850-TC; 87081-TC; 90935-TC; A6253; A6403; G0378; J2185; J3370; J7050; J7060; P9016-BL; U0003